=== PATIENT | female | born 1960 | race Caucasian/White ===

== ENCOUNTER 2016-11-21 07:57 | Inpatient (IN) | payer BC ==
[2016-11-21] MEDS ORDERED: KETOROLAC TROMETHAMINE 30 MG/ML VIAL IV ONE (08:13)
[2016-11-21] MEDS ORDERED: ONDANSETRON HCL/PF 2 MG/ML VIAL IV ONE (08:13)
[2016-11-21] MEDS ORDERED: DIATRIZOATE MEGLU/DIATRIZO SOD 30 ML BTL PO ONE (08:13)
[2016-11-21] MEDS ORDERED: ONDANSETRON HCL/PF 2 MG/ML VIAL ONE (08:14)
[2016-11-21] MEDS ORDERED: DIATRIZOATE MEGLU/DIATRIZO SOD 30 ML BTL ONE (08:14)
[2016-11-21] MEDS ORDERED: KETOROLAC TROMETHAMINE 30 MG/ML VIAL ONE (08:14)
--- NOTE | 2016-11-21 08:19 | ERNOTE ---
Abdominal HPI - General Time Seen by Provider: 11/21/16 08:01 Source: patient Exam Limitations: no limitations - Immun/Allergies/Home Medications Allergies/Adverse Reactions: Allergies intex Allergy (Uncoded 11/21/16 10:48) Home Medications: HOME MEDICATIONS Atorvastatin Calcium 11/21/16 [Last Taken Unknown] Fluticasone/Salmeterol [Advair 100-50 Diskus] 1 puff IH BID 11/21/16 [Last Taken Unknown] Ipratropium [place] [Atrovent Hfa] 2 puff IH QID 11/21/16 [Last Taken Unknown] Lisinopril 11/21/16 [Last Taken Unknown] Singulair 11/21/16 [Last Taken Unknown] - History of Present Illness Narrative: Patient started to have abdominal pain yesterday afternoon. The pain has been waxing and waning but has not resolved, she is nauseated but has not vomited, had two episodes of diarrhea this morning, no blood, never had symptoms like this before Date (Duration): 11/20/16 Time (Timing): 15:45 Timing: constant Quality: severe, sharpness Activities at Onset: none Modifying Factors - (Worsens): Present: movement Prior Abdominal Problems: Present: none. Absent: similar symptoms Prior Treatment: Absent: recently seen, currently on antibiotics Review of Systems - Review of Systems Constitutional: Absent: recent illness, fever Respiratory: Absent: shortness of breath, other Gastrointestinal/Abdominal: Present: See HPI Genitourinary: Present: no symptoms reported Musculoskeletal: Absent: back pain - Patient's Past Medical History Patient History - Medical: Arthritis Patient History - Cardiac/Respiratory: Hypertension, Hyperlipidemia Patient History - Cancer: No Hx of Cancer Patient History - Surgical Procedures: Hysterectomy, Total Knee Replacement - Social History Smoking Status: Former smoker Physical Exam - Physical Exam General Appearance: Present: wd/wn, alert, moderate distress Ears, Nose, Throat: Present: normal pharynx Respiratory: Present: no respiratory distress, normal breath sounds, lungs clear Cardiovascular/Chest: Present: regular rate, rhythm, no murmur Gastrointestinal/Abdominal: Present: normal bowel sounds, nondistended, soft, tenderness, McBurney sign, Obturator sign, Psoas sign Back Exam: Present: no CVA tenderness Neurological Exam: Present: alert, oriented, normal mood/affect Skin Exam: Present: normal color, warm/dry ED Progress - Results and Orders Patient's Lab Results:: I have reviewed the patient's lab results. - Vital Signs Patient's Vital Signs:: I have reviewed the patient's vital signs. - CT/Ultrasound CT/Ultrasound Narrative: CT abdomen/pelvis: acute appendicitis - Progress/Reassessment Progress Note-Subjective: 11/21/16 08:43 minimal pain relieve from toradol 11/21/16 09:35 pain controlled after morphine, patient is tolerating contrast, having chills 11/21/16 10:37 discussed results with radiologist explained results to patient 11/21/16 10:[address] Quiros (surgery), start primaxin, he will call surgery for time Departure - Departure Clinical Impression: Appendicitis Qualifiers: Appendicitis type: acute appendicitis Acute appendicitis type: unspecified acute appendicitis type Qualified Code(s): K35.80 - Unspecified acute appendicitis Disposition: [facility] Condition: Good Referrals: Walter Glass MD [Primary Care Provider] -
[2016-11-21 08:36] LABS: Hematocrit 34.5 % (37.0-47.0); Hemoglobin 11.4 gm/dL (12.5-16.0); Mean Cell Volume 92.2 fl (78-100); Mean Corpuscular Hemoglobin 30.5 pg (27-31); Mean Platelet Volume 9.8 fl (6.0-9.5); Neutrophil # 15.5 K/mm3 (1.3-6.0); Neutrophil % 86.7 % (42-75.0); Platelet Count 270 K/mm3 (150-450); Red Blood Count 3.74 M/mm3 (4.2-5.4); Red Cell Distribution Width 13.1 % (11.5-14.0); White Blood Count 17.9 K/mm3 (4.0-10.5)
[2016-11-21] MEDS ORDERED: MORPHINE SULFATE 4 MG/ML SYRG IV ONE (08:42)
[2016-11-21] MEDS ORDERED: MORPHINE SULFATE 4 MG/ML SYRG ONE (08:43)
[2016-11-21 08:48] LABS: Albumin * 3.5 gm/dl (3.4-5.0); Anion Gap 15.5 mmol/L (6.8-13.8); Bilirubin, Total 1.2 mg/dL (0.0-1.1); Ca. Corrected For Albumin 9.2 mg/dL (8.4-10.2); Calcium * 9.1 mg/dL (7.9-10.9); Carbon Dioxide 25.3 mmol/L (24-32.6); Potassium 3.8 mmol/L (3.4-4.6); Total Protein 6.9 gm/dL (6.2-8.2)
--- OUTSIDE RECORDS SUMMARY | 2016-11-21 10:32 | XMS REPORT | Continuity of Care Document ---
:1960 Author Organization [facility] ([facility]) Address [address] [place] [address] Phone [phone] Care Team Providers Name Role Phone Provider, No-Primary Care Primary Care Provider Unavailable Source Comments This disclosure is being made pursuant to the Care Everywhere program, applicable federal and state laws, and may not contain all informaitonavailable regarding this patient.[facility] ([facility]) Active Allergies and Adverse Reactions Not on File Current Medications Not on file Active Problems Not on file Social History Tobacco Use Types Packs/Day Years Used Date Never Assessed Plan of Care Health Maintenance Due Date Last Done Comments HCV Screening 1960 Hepatitis B Vaccine (1 of 3 - Primary Series) 1960 Tdap Vaccine 11/04/1971 Lipid Disorder Screening 1978 MMR Vaccine 1978 Td Vaccine 1978 Cervical Cancer Screening 1990 Mammogram 2000 Colonoscopy 2010 Influenza Vaccine: Seasonal (#1) 04/02/2016 Results from Last 3 Months Not on file
--- OUTSIDE RECORDS SUMMARY | 2016-11-21 11:07 | XMS REPORT | Continuity of Care Document ---
:1960 Author Organization [facility] ([facility]) Address [address] [place] [address] Phone [phone] Care Team Providers Name Role Phone Provider, No-Primary Care Primary Care Provider Unavailable Source Comments This disclosure is being made pursuant to the Care Everywhere program, applicable federal and state laws, and may not contain all informaitonavailable regarding this patient.[facility] ([facility]) Active Allergies and Adverse Reactions Not on [...]
[2016-11-21] MEDS: CIPROFLOXACIN LACTATE/D5W 400 MG/200 ML BAG IV SCH ×2 (11:14→23:11)
[2016-11-21] MEDS ORDERED: NORMAL SALINE 1,000 ML IV ONE (11:32)
--- NOTE | 2016-11-21 12:27 | HP ---
Chief Complaint - Chief Complaint Date of Service: 11/21/16 Time of Service: 12:21 Chief Complaint: Acute appendicitis. Seen in ER History of Present Illness: Onset of RLQ abdominal pain since yesterday afternoon. Presented to ER with WBC ~17K and CT of abdomen c/w non-perforated acute appendicitis. - Patient's Past Medical History Patient History - Medical: Arthritis Patient History - Cardiac/Respiratory: Hypertension, Hyperlipidemia Patient History - Cancer: No Hx of Cancer Patient History - Surgical Procedures: Hysterectomy, Total Knee Replacement Patient History - Other: None LMP (females 10-50): Menopausal - Family History Family History:: no untoward family reactions to anesthesia - Social History Living Situations: home Abuse History: No History of abuse Psych History: No pertinent hx Smoking Status: Former smoker Alcohol Use: occasionally Drug Use: none - Immunizations Immunizations Up to Date: Yes Hx Pneumococcal Vaccination: Yes History of Influenza Vaccine: Yes Review Of Systems (GEN) - Review of Systems Misc: All systems neg except as marked Immunizations: IMMUNIZATION HX Immunizations Up to Date Yes History of Influenza Vaccine Yes Hx Pneumococcal Vaccination Yes Allergies/Adverse Reactions: Allergies Allergy/AdvReac Type Severity Reaction Status Date / Time intex Allergy Uncoded 11/21/16 10:48 Home Medications: HOME MEDICATIONS Atorvastatin Calcium 11/21/16 [Last Taken Unknown] Fluticasone/Salmeterol [Advair 100-50 Diskus] 1 puff IH BID 11/21/16 [Last Taken Unknown] Ipratropium [place] [Atrovent Hfa] 2 puff IH QID 11/21/16 [Last Taken Unknown] Lisinopril 11/21/16 [Last Taken Unknown] Singulair 11/21/16 [Last Taken Unknown] Exam - Exam Vital Signs: Vital Signs - Last Taken Temp 37.6 C H 11/21/16 12:14 Pulse 92 11/21/16 12:14 Resp 18 11/21/16 12:14 BP 103/46 11/21/16 12:14 Pulse Ox 96 11/21/16 12:14 Constitutional: Present: Alert, Oriented x3, No distress ENT Exam: Present: normal ENT inspection Neck: Present: normal inspection Respiratory: Present: normal breath sounds, no respiratory distress Cardiovascular/Chest: Present: regular rate, rhythm, no murmur Abdomen: Present: hypoactive Skin Exam: Present: warm/dry Neurologic: Present: no motor/sensory deficits Eye contact: Present: belligerent Diagnostic Studies: Abnormal Lab Results 11/21/16 11/21/16 Range/Units 08:25 08:25 WBC 17.9 H (4.0-10.5) K/mm3 RBC 3.74 L (4.2-5.4) M/mm3 Hgb 11.4 L (12.5-16.0) gm/dL Hct 34.5 L (37.0-47.0) % MPV 9.8 H (6.0-9.5) fl Immature Gran % (Auto) 0.80 H (0.001-0.429) % Immature Gran # (Auto) 0.15 H (0.000-0.0310) K/mm3 Neutrophils % 86.7 H (42-75.0) % Lymphocytes % 5.4 L (20-51) % Neutrophils # 15.5 H (1.3-6.0) K/mm3 Lymphocytes # 1.0 L (1.5-3.5) k/mm3 Monocytes # 1.2 H (0.0-1.0) k/mm3 Anion Gap 15.5 H (6.8-13.8) mmol/L Random Glucose 138 H (70-110) mg/dL Total Bilirubin 1.2 H (0.0-1.1) mg/dL Lipase 63 L (73-393) U/L Laboratory Results WBC 17.9 K/mm3 (4.0-10.5) H 11/21/16 08:25 RBC 3.74 M/mm3 (4.2-5.4) L 11/21/16 08:25 Hgb 11.4 gm/dL (12.5-16.0) L 11/21/16 08:25 Hct 34.5 % (37.0-47.0) L 11/21/16 08:25 MCV 92.2 fl (78-100) 11/21/16 08:25 MCH 30.5 pg (27-31) 11/21/16 08:25 MCHC 33.0 g/dl (32-36) 11/21/16 08:25 RDW 13.1 % (11.5-14.0) 11/21/16 08:25 Plt Count 270 K/mm3 (150-450) 11/21/16 08:25 MPV 9.8 fl (6.0-9.5) H 11/21/16 08:25 Immature Gran % (Auto) 0.80 % (0.001-0.429) H 11/21/16 08:25 Immature Gran # (Auto) 0.15 K/mm3 (0.000-0.0310) H 11/21/16 08:25 Neutrophils % 86.7 % (42-75.0) H 11/21/16 08:25 Lymphocytes % 5.4 % (20-51) L 11/21/16 08:25 Monocytes % 6.7 % (0.0-9) 11/21/16 08:25 Eosinophils % 0.1 % (0.0-3.0) 11/21/16 08:25 Basophils % 0.3 % (0.0-1.0) 11/21/16 08:25 Nucleated RBC % 0.0 k/mm3 (0-1) 11/21/16 08:25 Neutrophils # 15.5 K/mm3 (1.3-6.0) H 11/21/16 08:25 Lymphocytes # 1.0 k/mm3 (1.5-3.5) L 11/21/16 08:25 Monocytes # 1.2 k/mm3 (0.0-1.0) H 11/21/16 08:25 Eosinophils # 0.0 k/mm3 (0.0-0.7) 11/21/16 08:25 Absolute Basophils 0.1 k/mm3 (0.0-0.1) 11/21/16 08:25 Sodium 139 mmol/L (132-142) 11/21/16 08:25 Plasma Sodium 140 mmol/L (130-142) 11/21/16 08:25 Potassium 3.8 mmol/L (3.4-4.6) 11/21/16 08:25 Chloride 102 mmol/L (97-106) 11/21/16 08:25 Carbon Dioxide 25.3 mmol/L (24-32.6) 11/21/16 08:25 Anion Gap 15.5 mmol/L (6.8-13.8) H 11/21/16 08:25 BUN 13 mg/dL (3-23) 11/21/16 08:25 Creatinine 1.00 mg/dL (0.4-1.4) 11/21/16 08:25 Est GFR (Non-Af Amer) 61 mL/min (60-130) 11/21/16 08:25 BUN/Creatinine Ratio 13.0 (9.0-21.6) 11/21/16 08:25 Random Glucose 138 mg/dL (70-110) H 11/21/16 08:25 Calcium 9.1 mg/dL (7.9-10.9) 11/21/16 08:25 Calcium Adj for Albumin 9.2 mg/dL (8.4-10.2) 11/21/16 08:25 Total Bilirubin 1.2 mg/dL (0.0-1.1) H 11/21/16 08:25 AST 17 U/L (0-48) 11/21/16 08:25 ALT 24 U/L (19-67) 11/21/16 08:25 Alkaline Phosphatase 61 U/L (50-170) 11/21/16 08:25 Total Protein 6.9 gm/dL (6.2-8.2) 11/21/16 08:25 Albumin 3.5 gm/dl (3.4-5.0) 11/21/16 08:25 Amylase 41 U/L (25-115) 11/21/16 08:25 Lipase 63 U/L (73-393) L 11/21/16 08:25 Assessment/Plan - Narrative Narrative: A: Acute appendicitis. Non-perforated P: Recommend laparoscopic appendectomy. The options, risks, and benefits were reviewed with the patient who seems to understand, asks appropriate questions and desires to proceed.
[2016-11-21] MEDS ORDERED: RINGERS SOLUTION,LACTATED 1,000 ML IV ONE ×2 (12:50→13:50)
[2016-11-21] MEDS ORDERED: BUPIVACAINE HCL/EPINEPHRINE 50 ML VIAL IJ ONE ×2 (13:15)
--- NOTE | 2016-11-21 14:55 | OR ---
Operative Report - Dictated Report Narrative: Date: 11/21/16 Pre: Appendicitis, non-perf Post: Appendicitis, perforated Procedure: Laparoscopic adhesiolysis Laparoscopic appendectomy Surgeon: Ishaan EBL: 30 cc Drains: none Comps: none apparent Procedure: Pt was placed in supine position and following the smooth induction of GETA a montejo catheter was inserted and SCD boots applied. All port sites anesthetized with marcaine prior to incision. Small 5 mm infraumbilical incision carried out and blunt dissection carried to abdominal wall. Perforating towel clip placed through umbilical raphe for counter traction. Abdomen entered under direction vision with a 5mm blunt port with scope within the lumen of the trocar. Abdomen insufflated to 15mmHg with CO2. Large amount of dense adhesions to abdominal wall in lower half of abdomen started at left mid-clavicular line extending over to the Right Ant. Sup. Iliac spine. A LLQ 5mm port was inserted under direct vision. 75% of this case was spent in taking down these adhesions which also involved the terminal ileum, ileal fold of Treves, appendix and cecum. Once cleared a 12 mm suprapubic port was inserted under direct vision. The appendix was from surrounding adhesions and was found to be necrotic at its base near the cecum and was perforated with a fecolith sticking out. The mesoappendix was taken down in continuity with an ultrasonic dissector. The appendix was transected flush with the cecum with an endo-STEFANY. The appendix was placed in an endo-catch bag and delivered trough the suprapubic port site. This port was returned. Inspection carried out. Hemostasis was adequate. Pelvis and right iliac fossa were irrigated and irrigant evacuated. Pneumoperitoneum evacuated. Incisions closed with subq 4-0 vicryl interrupteds and sealed with dermabond. Pt luc procedure well without apparent comps and dc'd to recovery in stable condition.
--- OUTSIDE RECORDS SUMMARY | 2016-11-21 15:04 | XMS REPORT | Continuity of Care Document ---
:1960 Author Organization [facility] ([facility]) Address [address] [place] [address] Phone [phone] Care Team Providers Name Role Phone Provider, No-Primary Care Primary Care Provider Unavailable Source Comments This disclosure is being made pursuant to the Care Everywhere program, applicable federal and state laws, and may not contain all informaitonavailable regarding this patient.[facility] ([facility]) Active Allergies and Adverse Reactions Not on [...]
[2016-11-21] MEDS ORDERED: RINGERS SOLUTION,LACTATED 1,000 ML IV PRN (16:11)
[2016-11-21] MEDS ORDERED: ONDANSETRON HCL/PF 2 MG/ML VIAL IV PRN (16:11)
--- NOTE | 2016-11-21 16:19 | DS ---
(1) Appendicitis Problem: Acute Qualifiers: Appendicitis type: acute appendicitis Acute appendicitis type: unspecified acute appendicitis type Qualified Code(s): K35.80 - Unspecified acute appendicitis Description of Stay: Pt presented with acute appendicitis and underwent a lap appy with lysis of adhesions. Tolerated procedure well without comps and DCd in improved condition. Appy was perfed so will continue cipro/flagyl for 7 days outpatient and have short interval follow-up. Procedures Performed: see notes below List Procedures: Laparoscopic adhesiolysis, appendectomy Discharge Disposition: Home self care Disposition: Home self-care Condition: Good Discharge Activity: Activity as tolerated Discharge Diet: General/regular food Referrals: Walter Glass MD [Primary Care Provider] - Complete Home Medications List: Complete Home Medication List: Atorvastatin Calcium 11/21/16 Fluticasone/Salmeterol [Advair 100-50 Diskus] 1 puff IH BID 11/21/16 Ipratropium [place] [Atrovent Hfa] 2 puff IH QID 11/21/16 Lisinopril 11/21/16 Singulair 11/21/16
[2016-11-21] MEDS ORDERED: oxyCODONE HCL/ACETAMINOPHEN 1 TAB TABLET PO ONE (17:00)
[2016-11-21] MEDS: IPRATROPIUM BROMIDE 0.5 MG/2.5 ML VIAL.NEB IH SCH (18:14)
[2016-11-21] MEDS: ALBUTEROL SULFATE 2.5 MG/3 ML VIAL.NEB IH SCH (18:18)
[2016-11-21] MEDS: BUDESONIDE 0.25 MG/2 ML VIAL.NEB IH SCH (18:19)
[2016-11-21] MEDS ORDERED: NON-FORMULARY 1 DOSE DOSE (Fluticasone/Salmeterol [Advair 100-50 Diskus] 1 PUFF) IH SCH (21:00)
[2016-11-21] MEDS: MORPHINE SULFATE 2 MG/ML DISP.SYRIN IV PRN (23:17)
[2016-11-22] MEDS: MORPHINE SULFATE 2 MG/ML DISP.SYRIN IV PRN ×2 (03:36→04:53)
[2016-11-22] MEDS: IPRATROPIUM BROMIDE 0.5 MG/2.5 ML VIAL.NEB IH SCH ×2 (06:08→10:18)
[2016-11-22] MEDS: BUDESONIDE 0.25 MG/2 ML VIAL.NEB IH SCH (06:10)
[2016-11-22] MEDS: ALBUTEROL SULFATE 2.5 MG/3 ML VIAL.NEB IH SCH (06:10)
[2016-11-22] MEDS ORDERED: HYDROcodone/ACETAMINOPHEN 1 EACH TABLET PO PRN ×2 (06:38→06:40)
--- NOTE | 2016-11-22 10:10 | PN ---
Subjective - Date and Time Seen Date: 11/22/16 Time: 10:05 Subjective Narrative: POD1 Lap lysis adhesions and appendectomy Ambulating OK. Tolerating PO Minimal pain. Objective - Review of Systems Misc: All systems neg except as marked - Vitals Vitals: Last Vital Signs Temp 37.2 C 11/22/16 05:30 Pulse 101 H 11/22/16 06:20 Resp 22 H 11/22/16 06:20 BP 117/63 11/22/16 05:30 Pulse Ox 93 11/22/16 06:08 - Exam Exam Narrative: Abd: Wounds intact without drainage, s/s infection. Constitutional: Present: Alert, Oriented x3, Cooperative Assessment/Plan Plan Narrative: A: POD1 Lap appy, doing well P: Discharge to home May shower. Reg diet. Avoid heavy lifting for 2 weeks. FMLA-off work 2 weeks (works at [employer]). FU 1 week Needs 1 wk po abx due to perf. Home with [place]. - Problems/Diagnosis (1) Appendicitis Problem: Acute Qualifiers: Appendicitis type: acute appendicitis Acute appendicitis type: unspecified acute appendicitis type Qualified Code(s): K35.80 - Unspecified acute appendicitis
[2016-11-22 11:09] VITALS: BP 127/60
[2016-11-22] MEDS: CIPROFLOXACIN LACTATE/D5W 400 MG/200 ML BAG IV SCH (11:35)
== END 2016-11-22 14:00 | disposition home or self-care (01) | DRG 337 ==
LOC: ER 07:57 → AMB 11:03 → MS 14:59 → OBSVTOIN 17:04
PROVIDERS: ADMIT Specialist; ATTEND Specialist
PROC: 0DNB4ZZ Release Ileum, Percutaneous Endoscopic Approach (ICD-10-PCS; 2016-11-21)
PROC: 0DTJ4ZZ Resection of Appendix, Percutaneous Endoscopic Approach (ICD-10-PCS; principal; 2016-11-21 12:30)
DX: K35.2 Acute appendicitis with generalized peritonitis (principal); K66.0 Peritoneal adhesions (postprocedural) (postinfection); I10 Essential (primary) hypertension; E78.5 Hyperlipidemia, unspecified; Z87.891 Personal history of nicotine dependence

== ENCOUNTER 2017-03-10 22:09 | Inpatient (IN) | payer BC ==
--- NOTE | 2017-03-10 22:29 | ERNOTE ---
Abdominal HPI - General Chief Complaint: Abdominal Pain Time Seen by Provider: 03/10/17 22:13 Source: patient Exam Limitations: no limitations - Immun/Allergies/Home Medications Immunizatons: IMMUNIZATION HX Immunizations Up to Date Yes History of Influenza Vaccine Yes Hx Pneumococcal Vaccination Yes Allergies/Adverse Reactions: Allergies intex Allergy (Uncoded 03/10/17 22:19) Home Medications: HOME MEDICATIONS Atorvastatin Calcium 40 mg PO DAILY 11/21/16 [Last Taken Unknown] Baclofen 2.5 mg PO TID 11/21/16 [Last Taken Unknown] Calcium Carbonate/Vitamin D3 [Calcium 600 + D3 Softgel] 1 each PO BID 11/21/16 [ Last Taken Unknown] Diltiazem HCl [Diltiazem ER] 360 mg PO DAILY 11/21/16 [Last Taken Unknown] Fluticasone/Salmeterol [Advair 100-50 Diskus] 1 puff IH BID 11/21/16 [Last Taken Unknown] Gemfibrozil [Lopid] 600 mg PO DAILY 11/21/16 [Last Taken Unknown] Ipratropium [place] [Atrovent Hfa] 2 puff IH QID 11/21/16 [Last Taken Unknown] Lisinopril [Zestril] 10 mg PO BID 11/21/16 [Last Taken Unknown] Montelukast Sodium [Singulair] 10 mg PO DAILY 11/21/16 [Last Taken Unknown] Multivitamin [One Daily Essential] 1 each PO DAILY 11/21/16 [Last Taken Unknown] Nabumetone 750 mg PO TID 11/21/16 [Last Taken Unknown] [place] Oil/[place]-3 Fatty Acids [Fish Oil] 1,200 mg PO BID 11/21/16 [Last Taken Unknown] Turmeric Root Extract [Turmeric] 500 mg PO DAILY 03/10/17 [Last Taken Unknown] - History of Present Illness Narrative: pt here for abd pain for two weeks however pt states she has had this abd pain off and on "since I had my appendicitis" Review of Systems - Review of Systems Constitutional: Present: no symptoms reported EYE: Present: no symptoms reported ENT: Present: no symptoms reported Respiratory: Present: no symptoms reported Cardiology: Present: no symptoms reported Gastrointestinal/Abdominal: Present: See HPI Genitourinary: Present: no symptoms reported - Patient's Past Medical History Patient History - Medical: Arthritis Patient History - Cardiac/Respiratory: COPD, Hypertension, Hyperlipidemia Patient History - Cancer: No Hx of Cancer Patient History - Surgical Procedures: Appendectomy, Hysterectomy, Total Knee Replacement, Hernia Repair Patient History - Other: None - Social History Living Situations: home Abuse History: No History of abuse Psych History: No pertinent hx Smoking Status: Never smoker Have you smoked in the past 12 months: No Alcohol Use: occasionally Drug Use: none - Immunizations Immunizations Up to Date: Yes Hx Pneumococcal Vaccination: Yes History of Influenza Vaccine: Yes Physical Exam - Physical Exam General Appearance: Present: wd/wn, alert, no apparent distress Neck: Present: normal inspection, nontender Respiratory: Present: no respiratory distress, normal breath sounds, no accessory muscle use, chest nontender, lungs clear Cardiovascular/Chest: Present: regular rate, rhythm, no murmur, normal peripheral pulses Gastrointestinal/Abdominal: Present: other - increased bowel sounds with rushes , also pt is very tender in mid epigastrium region. It feels full ED Progress - Results and Orders Patient's Lab Results:: I have reviewed the patient's lab results. - Vital Signs Patient's Vital Signs:: I have reviewed the patient's vital signs. Vital Signs: Vital Signs 03/10/17 22:15 Temperature 37.0 C Pulse Rate 90 Respiratory 16 Rate Blood Pressure 119/70 - Progress/Reassessment Chief Complaint: Abdominal Pain Plan - Plan Plan: pt has partial sbo and will be admitted, Dr. Quiros was consulted and pt to be admitted to [facility] Departure - Departure Clinical Impression: Small bowel obstruction Disposition: [facility] Condition: Fair
[2017-03-10] MEDS ORDERED: DIATRIZOATE MEGLU/DIATRIZO SOD 30 ML BTL ONE (22:51)
[2017-03-10] MEDS ORDERED: DIATRIZOATE MEGLU/DIATRIZO SOD 30 ML BTL PO ONE (23:03)
[2017-03-10 23:04] LABS: Hematocrit 34.3 % (37.0-47.0); Hemoglobin 11.4 gm/dL (12.5-16.0); Mean Cell Volume 88.9 fl (78-100); Mean Corpuscular Hemoglobin 29.5 pg (27-31); Mean Corpuscular Hgb Conc 33.2 g/dl (32-36); Mean Platelet Volume 9.2 fl (6.0-9.5); Neutrophil # 8.4 K/mm3 (1.3-6.0); Neutrophil % 64.5 % (42-75.0); Platelet Count 432 K/mm3 (150-450); Red Blood Count 3.86 M/mm3 (4.2-5.4); Red Cell Distribution Width 13.1 % (11.5-14.0)
[2017-03-10 23:17] LABS: Albumin * 3.8 gm/dl (3.4-5.0); Anion Gap 13.1 mmol/L (6.8-13.8); Bilirubin, Total 0.8 mg/dL (0.0-1.1); Ca. Corrected For Albumin 9.4 mg/dL (8.4-10.2); Calcium * 9.6 mg/dL (7.9-10.9); Carbon Dioxide 30.6 mmol/L (24-32.6); Potassium 4.7 mmol/L (3.4-4.6); Total Protein 7.8 gm/dL (6.2-8.2)
[2017-03-11] MEDS ORDERED: ONDANSETRON HCL/PF 2 MG/ML VIAL IV ONE ×2 (00:41→00:44)
[2017-03-11] MEDS ORDERED: HYDROmorphone HCL 1 MG/ML DISP.SYRIN IV ONE (00:42)
[2017-03-11] MEDS ORDERED: HYDROmorphone HCL 1 MG/ML DISP.SYRIN ONE (00:43)
[2017-03-11] MEDS ORDERED: ONDANSETRON HCL/PF 2 MG/ML VIAL ONE (00:43)
[2017-03-11] MEDS ORDERED: KETOROLAC TROMETHAMINE 30 MG/ML VIAL IV ONE (00:45)
--- NOTE | 2017-03-11 03:42 | HP ---
Chief Complaint - Chief Complaint Date of Service: 03/11/17 Time of Service: 03:41 Chief Complaint: partial small bowel obstruction History of Present Illness: Tiera is a 56 year old female with a PMH of COPD, HTN and HLD who had an appendectomy 10/2016 who presented to the ER tonight with c/o abdominal pain for 1 week. ER eval revealed wbc 13.0 with normal neutrophils, creatinine 1.24. CT abdomen/pelvis showed large hiatal hernia and dilated loops of small bowel throughout the abdomen c/w partial SBO vs ileus, no focal transition point seen. Dr. Brown was consulted by the ER. NG tube placed prior to admission. Patient to be admitted for partial SBO. - Patient's Past Medical History Patient History - Medical: Arthritis Patient History - Cardiac/Respiratory: COPD, Hypertension, Hyperlipidemia Patient History - Cancer: No Hx of Cancer Patient History - Surgical Procedures: Appendectomy, Hysterectomy, Total Knee Replacement, Hernia Repair Patient History - Other: None - Social History Living Situations: home Abuse History: No History of abuse Psych History: No pertinent hx Smoking Status: Never smoker Have you smoked in the past 12 months: No Alcohol Use: occasionally Drug Use: none - Immunizations Immunizations Up to Date: Yes Hx Pneumococcal Vaccination: Yes History of Influenza Vaccine: Yes Review Of Systems (GEN) - Review of Systems Generalized/Overall Review: Present: No Symptoms Reported EENTM: Present: No Symptoms Reported, Throat Swelling Cardiac: Present: No Symptoms Reported Abdominal: Present: Nausea, Abdominal Pain Genitourinary: Present: No Symptoms Reported Musculoskeletal: Present: No Symptoms Reported Neurological: Present: No Symptoms Reported Skin: Present: No Symptoms Reported Endocrine: Present: No Symptoms Reported Misc: All systems neg except as marked Immunizations: IMMUNIZATION HX Immunizations Up to Date Yes History of Influenza Vaccine Yes Hx Pneumococcal Vaccination Yes Allergies/Adverse Reactions: Allergies Allergy/AdvReac Type Severity Reaction Status Date / Time intex Allergy Uncoded 03/10/17 22:19 Home Medications: HOME MEDICATIONS Atorvastatin Calcium 40 mg PO DAILY 11/21/16 [Last Taken Unknown] Baclofen 2.5 mg PO TID 11/21/16 [Last Taken Unknown] Calcium Carbonate/Vitamin D3 [Calcium 600 + D3 Softgel] 1 each PO BID 11/21/16 [ Last Taken Unknown] Diltiazem HCl [Diltiazem ER] 360 mg PO DAILY 11/21/16 [Last Taken Unknown] Fluticasone/Salmeterol [Advair 100-50 Diskus] 1 puff IH BID 11/21/16 [Last Taken Unknown] Gemfibrozil [Lopid] 600 mg PO DAILY 11/21/16 [Last Taken Unknown] Ipratropium [place] [Atrovent Hfa] 2 puff IH QID 11/21/16 [Last Taken Unknown] Lisinopril [Zestril] 10 mg PO BID 11/21/16 [Last Taken Unknown] Montelukast Sodium [Singulair] 10 mg PO DAILY 11/21/16 [Last Taken Unknown] Multivitamin [One Daily Essential] 1 each PO DAILY 11/21/16 [Last Taken Unknown] Nabumetone 750 mg PO TID 11/21/16 [Last Taken Unknown] [place] Oil/[place]-3 Fatty Acids [Fish Oil] 1,200 mg PO BID 11/21/16 [Last Taken Unknown] Turmeric Root Extract [Turmeric] 500 mg PO DAILY 03/10/17 [Last Taken Unknown] Exam - Exam Vital Signs: Vital Signs - Last Taken Temp 37.0 C 03/11/17 01:55 Pulse 70 03/11/17 02:39 Resp 16 03/11/17 02:39 BP 130/77 03/11/17 02:39 Pulse Ox 95 03/11/17 02:39 Constitutional: Present: Alert, No distress, Other - minimally cooperative with questions asked ENT Exam: Present: hearing grossly normal Eye Exam: bilateral eye: normal inspection Neck: Present: full range of motion, supple Breasts: Present: Exam deferred Respiratory: Present: lungs clear, normal breath sounds, no respiratory distress , no accessory muscle use Cardiovascular/Chest: Present: regular rate, rhythm, no chest tenderness, no JVD , no murmur Peripheral Pulses: dorsalis-pedis (R): 2+, dorsalis-pedis (L): 2+, radial (R): 2 +, radial (L): 2+ Abdomen: Present: soft, tender, high pitched bowel sounds /Rectal: Present: Exam deferred Extremity: Present: non-tender, normal inspection, no calf tenderness Skin Exam: Present: normal color, warm/dry, no cyanosis Diagnostic Studies: Laboratory Results WBC 13.0 K/mm3 (4.0-10.5) H 03/10/17 23:00 RBC 3.86 M/mm3 (4.2-5.4) L 03/10/17 23:00 Hgb 11.4 gm/dL (12.5-16.0) L 03/10/17 23:00 Hct 34.3 % (37.0-47.0) L 03/10/17 23:00 MCV 88.9 fl (78-100) 03/10/17 23:00 MCH 29.5 pg (27-31) 03/10/17 23:00 MCHC 33.2 g/dl (32-36) 03/10/17 23:00 RDW 13.1 % (11.5-14.0) 03/10/17 23:00 Plt Count 432 K/mm3 (150-450) 03/10/17 23:00 MPV 9.2 fl (6.0-9.5) 03/10/17 23:00 Immature Gran % (Auto) 0.40 % (0.001-0.429) 03/10/17 23:00 Immature Gran # (Auto) 0.05 K/mm3 (0.000-0.0310) H 03/10/17 23:00 Neutrophils % 64.5 % (42-75.0) 03/10/17 23:00 Lymphocytes % 23.2 % (20-51) 03/10/17 23:00 Monocytes % 7.6 % (0.0-9) 03/10/17 23:00 Eosinophils % 3.2 % (0.0-3.0) H 03/10/17 23:00 Basophils % 1.1 % (0.0-1.0) H 03/10/17 23:00 Nucleated RBC % 0.0 k/mm3 (0-1) 03/10/17 23:00 Neutrophils # 8.4 K/mm3 (1.3-6.0) H 03/10/17 23:00 Lymphocytes # 3.0 k/mm3 (1.5-3.5) 03/10/17 23:00 Monocytes # 1.0 k/mm3 (0.0-1.0) 03/10/17 23:00 Eosinophils # 0.4 k/mm3 (0.0-0.7) 03/10/17 23:00 Absolute Basophils 0.1 k/mm3 (0.0-0.1) 03/10/17 23:00 Sodium 136 mmol/L (132-142) 03/10/17 23:00 Plasma Sodium 136 mmol/L (130-142) 03/10/17 23:00 Potassium 4.7 mmol/L (3.4-4.6) H D 03/10/17 23:00 Chloride 97 mmol/L (97-106) 03/10/17 23:00 Carbon Dioxide 30.6 mmol/L (24-32.6) 03/10/17 23:00 Anion Gap 13.1 mmol/L (6.8-13.8) 03/10/17 23:00 BUN 26 mg/dL (3-23) H D 03/10/17 23:00 Creatinine 1.24 mg/dL (0.4-1.4) 03/10/17 23:00 Est GFR (Non-Af Amer) 48 mL/min (60-130) L D 03/10/17 23:00 BUN/Creatinine Ratio 21.0 (9.0-21.6) 03/10/17 23:00 Random Glucose 127 mg/dL (70-110) H 03/10/17 23:00 Calcium 9.6 mg/dL (7.9-10.9) 03/10/17 23:00 Calcium Adj for Albumin 9.4 mg/dL (8.4-10.2) 03/10/17 23:00 Total Bilirubin 0.8 mg/dL (0.0-1.1) 03/10/17 23:00 AST 19 U/L (0-48) 03/10/17 23:00 ALT 22 U/L (19-67) 03/10/17 23:00 Alkaline Phosphatase 100 U/L (50-170) 03/10/17 23:00 Total Protein 7.8 gm/dL (6.2-8.2) 03/10/17 23:00 Albumin 3.8 gm/dl (3.4-5.0) 03/10/17 23:00 Assessment/Plan - Narrative Narrative: small bowel obstruction, partial - ng tube to suction - strict I&Os - watch output closely - NPO - IVF: D5NS at 125 ml/hr - Dr. Joel has been consulted by the ERP - iv anti-enemic and iv pain medications have been ordered. HTN - vital signs q 4 hours Stable medical conditions -COPD, HLD Code status: full Code VTE: Lovenox GI proph: IV protonix. - Assessment/Plan (1) Small bowel obstruction Problem: Acute (2) COPD (chronic obstructive pulmonary disease) Problem: Chronic Qualifiers: COPD type: unspecified COPD Qualified Code(s): J44.9 - Chronic obstructive pulmonary disease, unspecified (3) HTN (hypertension) Problem: Chronic Qualifiers: Hypertension type: essential hypertension Qualified Code(s): I10 - Essential (primary) hypertension (4) HLD (hyperlipidemia) Problem: Chronic Qualifiers: Hyperlipidemia type: unspecified Qualified Code(s): E78.5 - Hyperlipidemia , unspecified
[2017-03-11] MEDS: PANTOPRAZOLE SODIUM 40 MG in NORMAL SALINE 100 ML IV SCH (04:13)
[2017-03-11] MEDS: DEXTROSE 5%-NORMAL SALINE 1,000 ML IV PRN ×3 (04:13→20:38)
[2017-03-11] MEDS ORDERED: ENOXAPARIN SODIUM 40 MG/0.4 ML SYRG SC ONE (04:54)
[2017-03-11] MEDS: BUDESONIDE 0.25 MG/2 ML VIAL.NEB IH SCH ×2 (06:31→18:18)
[2017-03-11] MEDS: ALBUTEROL SULFATE 2.5 MG/3 ML VIAL.NEB IH SCH ×2 (06:31→18:16)
[2017-03-11] MEDS: IPRATROPIUM BROMIDE 0.5 MG/2.5 ML VIAL.NEB IH SCH ×4 (06:31→18:14)
[2017-03-11] MEDS: HYDROmorphone HCL 1 MG/ML DISP.SYRIN IV PRN ×4 (06:59→21:50)
[2017-03-11] MEDS: ONDANSETRON HCL/PF 2 MG/ML VIAL IV PRN ×2 (07:04→21:48)
[2017-03-11] MEDS: LISINOPRIL 10 MG TABLET PO SCH ×2 (08:49→20:42)
[2017-03-11] MEDS: BENZOCAINE/MENTHOL 16 EACH BOX MM PRN ×2 (08:52→14:07)
[2017-03-11] MEDS: DILTIAZEM HCL 180 MG CAP.SR.24H PO SCH (08:55)
[2017-03-11] MEDS: ENOXAPARIN SODIUM 40 MG/0.4 ML SYRG SC SCH (08:55)
[2017-03-11] MEDS ORDERED: PHENOL 180 SPRAY BTL MM PRN (10:37)
--- NOTE | 2017-03-11 10:48 | CONS ---
HPI - General Date of Service: 03/11/17 Narrative: Asked to see for a PSBO. Pt presented to ER with 1 week hx of abdominal pain and was found to have either an ileus or SBO on CT of the abdomen. No clear transition point was seen. Pt is well known to me. I did a laparoscopic appendectomy for perforated appendicitis back in October of this year. At that procedure she was noted to have extensive lower abdominal adhesions to the anterior abdominal wall. 75% of the time spent during that laparoscopy was to clear off adhesions so I could put in an additional port in the suprapubic region. She had contacted my office last week to see if we did cindi fundoplications due to her previously known hiatal hernia. She will need to have that repaired in [place]. Today she is feeling better but the NG is causing her an extreme sore throat and she is unable to talk and communicates by writing. Source: patient, RN/MD, old records Exam Limitations: no limitations - History of Present Illness Allergies/Adverse Reactions: Allergies intex Allergy (Uncoded 03/10/17 22:19) Home Medications: Home Medications Medication Instructions Recorded Last Taken Atorvastatin Calcium 40 mg PO DAILY 11/21/16 Unknown Baclofen 2.5 mg PO TID 11/21/16 Unknown Calcium Carbonate/Vitamin D3 2 each PO DAILY 11/21/16 Unknown [Calcium 600 + D3 Softgel] Diltiazem HCl [Diltiazem ER] 360 mg PO DAILY 11/21/16 Unknown Gemfibrozil [Lopid] 600 mg PO DAILY 11/21/16 Unknown Ipratropium [place] [Atrovent Hfa] 2 puff IH QID 11/21/16 Unknown Lisinopril [Zestril] 10 mg PO BID 11/21/16 Unknown Montelukast Sodium [Singulair] 10 mg PO DAILY 11/21/16 Unknown Multivitamin [One Daily Essential] 1 each PO DAILY 11/21/16 Unknown Nabumetone 750 mg PO TID 11/21/16 Unknown [place] Oil/[place]-3 Fatty Acids 1,200 mg PO BID 11/21/16 Unknown [Fish Oil] Turmeric Root Extract [Turmeric] 500 mg PO DAILY 03/10/17 Unknown Fluticasone/Salmeterol [Advair 1 puff IH BID 03/11/17 Unknown 250-50 Diskus] - Patient's Past Medical History Patient History - Medical: Arthritis Patient History - Cardiac/Respiratory: COPD, Hypertension, Hyperlipidemia Patient History - Cancer: No Hx of Cancer Patient History - Surgical Procedures: Appendectomy, Hysterectomy, Total Knee Replacement, Hernia Repair Patient History - Other: None - Family History Mother Family History - Medical: Father Family History - Medical: - Social History Living Situations: home Abuse History: No History of abuse Psych History: No pertinent hx Smoking Status: Never smoker Have you smoked in the past 12 months: No Do you dip or chew tobacco: No Patient requests Smoking Cessation Consult: No Initiate information on Smoking Cessation: No Alcohol Use: occasionally Drug Use: none - Immunizations Immunizations Up to Date: Yes Hx Pneumococcal Vaccination: Yes History of Influenza Vaccine: Yes Procedures BUNIONECT/SFT/OSTEOTOMY (11/29/99) RELEASE ILEUM, PERCUTANEOUS ENDOSCOPIC APPROACH (11/21/16) REPAIR OF HAMMER TOE (11/29/99) RESECTION OF APPENDIX, PERCUTANEOUS ENDOSCOPIC APPROACH (11/21/16) Medications - Medications Current Medications: Current Medications Albuterol Sulfate (Albuterol Sulfate 2.5 Mg/3 Ml) 2.5 mg IH BIDRT [facility] Stop: 04/10/17 07:01 Last Admin: 03/11/17 06:31 Dose: 2.5 mg Benzocaine/Menthol (Cepacol Sore Throat) 1 each MM Q1H PRN PRN Reason: Sore Throat Stop: 04/10/17 06:44 Last Admin: 03/11/17 08:52 Dose: 1 each Budesonide (Pulmicort Respules) 0.25 mg IH BIDRT [facility] Stop: 04/10/17 07:01 Last Admin: 03/11/17 06:31 Dose: 0.25 mg Diltiazem HCl (Cardizem Cd) 360 mg PO DAILY [facility] Stop: 04/10/17 09:01 Last Admin: 03/11/17 08:55 Dose: Not Given Enoxaparin Sodium (Lovenox) 40 mg SC DAILY [facility] Stop: 04/10/17 09:01 Last Admin: 03/11/17 08:55 Dose: Not Given Hydromorphone HCl (Dilaudid) 0.5 mg IV Q1H PRN PRN Reason: Moderate Pain Stop: 04/10/17 03:40 Last Admin: 03/11/17 06:59 Dose: 0.5 mg Dextrose/Sodium Chloride (Dextrose 5%-0.9% Ns) 1,000 mls @ 125 mls/hr IV .Q8H PRN PRN Reason: HYDRATION Stop: 04/10/17 03:40 Last Admin: 03/11/17 04:13 Dose: 125 mls/hr Pantoprazole Sodium 40 mg/ (Sodium Chloride) 100 mls @ 400 mls/hr IV DAILY [facility] Stop: 04/10/17 04:01 Last Infusion: 03/11/17 04:28 Dose: Infused Ipratropium [place] (Atrovent) 0.5 mg IH QIDRT [facility] Stop: 04/10/17 07:01 Last Admin: 03/11/17 10:07 Dose: 0.5 mg Lisinopril (Zestril) 10 mg PO BID [facility] Stop: 04/10/17 09:01 Last Admin: 03/11/17 08:49 Dose: 10 mg Ondansetron HCl (Zofran) 4 mg IV Q4H PRN PRN Reason: Nausea Stop: 04/10/17 03:40 Last Admin: 03/11/17 07:04 Dose: 4 mg Review of Systems - Review of Systems Abdominal: Present: Abdominal Pain Misc: All systems neg except as marked Physical Examination - Exam Vital Signs: Vital Signs - Last Taken Temp 36.9 C 03/11/17 06:58 Pulse 63 03/11/17 10:17 Resp 20 03/11/17 10:17 BP 110/86 03/11/17 08:49 Pulse Ox 95 03/11/17 10:07 O2 Oxygen Delivery Method Room Air Constitutional: Present: Alert, Oriented x3, Cooperative, Severe distress - Sore throat ENT Exam: Present: normal ENT inspection, other - NG draining bilious succus entericus Eye Exam: bilateral eye: normal inspection Neck: Present: normal inspection Respiratory: Present: no respiratory distress Abdomen: Present: soft, nontender, nondistended, no rebound tenderness, no hepatospenomegaly, no masses, obese. Absent: guarding, rigidity Skin Exam: Present: normal color, warm/dry Neurologic: Present: no motor/sensory deficits - Assessments/Findings (1) Small bowel obstruction Diagnosis(s): A: Partial Small Bowel Obstruction (PSBO) P: Agree with current management. Will follow with you. Undoubtedly adhesive in nature. Chloraseptic spray for throat. Problem: Acute
[2017-03-12] MEDS: DEXTROSE 5%-NORMAL SALINE 1,000 ML IV PRN (04:44)
[2017-03-12] MEDS: BENZOCAINE/MENTHOL 16 EACH BOX MM PRN (04:46)
[2017-03-12] MEDS: HYDROmorphone HCL 1 MG/ML DISP.SYRIN IV PRN ×2 (04:46→06:47)
--- NOTE | 2017-03-12 05:34 | PN ---
Subjective - Date and Time Seen Date: 03/12/17 Time: 05:32 Subjective Narrative: c/o sore throat. wants NG tube out. Objective - Review of Systems Generalized/Overall Review: Reports: No Symptoms Reported EENTM: Reports: Throat Pain Respiratory: Reports: No Symptoms Reported Cardiac: Reports: No Symptoms Reported Abdominal: Reports: No Symptoms Reported Genitourinary Symptoms: Reports: No Symptoms Reported Musculoskeletal Complaints: Reports: No Symptoms Reported Neurological: Reports: No Symptoms Reported Skin: Reports: No Symptoms Reported Endocrine: Reports: No Symptoms Reported Misc: All systems neg except as marked - Vitals Vitals: Last Vital Signs Temp 36.8 C 03/12/17 03:23 Pulse 75 03/12/17 03:23 Resp 18 03/12/17 03:23 BP 111/65 03/12/17 03:23 Pulse Ox 92 03/11/17 23:25 - Exam Constitutional: Present: Oriented x3, No distress ENT Exam: Present: hearing grossly normal Neck: Present: full range of motion, supple Breasts: Present: Exam deferred Respiratory: Present: normal breath sounds, no respiratory distress, no accessory muscle use Cardiovascular/Chest: Present: normal peripheral pulses, regular rate, rhythm Abdomen: Present: soft, nontender, nondistended /Rectal: Present: Exam deferred Extremity: Present: normal inspection, no calf tenderness Skin Exam: Present: normal color, warm/dry, no cyanosis Assessment/Plan Plan Narrative: small bowel obstruction, partial - ng tube to suction currently - strict I&Os - watch output closely - NPO - IVF: D5NS at 125 ml/hr - Dr. Brown following - recheck abdominal xray this am - ? removal of ng tube. - am labs pending. HTN - vital signs q 4 hours Stable medical conditions -COPD, HLD Code status: full Code VTE: Lovenox GI proph: IV protonix. - Problems/Diagnosis (1) Small bowel obstruction Problem: Acute (2) COPD (chronic obstructive pulmonary disease) Problem: Chronic Qualifiers: COPD type: unspecified COPD Qualified Code(s): J44.9 - Chronic obstructive pulmonary disease, unspecified (3) HTN (hypertension) Problem: Chronic Qualifiers: Hypertension type: essential hypertension Qualified Code(s): I10 - Essential (primary) hypertension (4) HLD (hyperlipidemia) Problem: Chronic Qualifiers: Hyperlipidemia type: unspecified Qualified Code(s): E78.5 - Hyperlipidemia , unspecified
[2017-03-12 06:02] LABS: Hematocrit 29.8 % (37.0-47.0); Hemoglobin 9.8 gm/dL (12.5-16.0); Mean Cell Volume 89.8 fl (78-100); Mean Corpuscular Hemoglobin 29.5 pg (27-31); Mean Corpuscular Hgb Conc 32.9 g/dl (32-36); Mean Platelet Volume 9.8 fl (6.0-9.5); Platelet Count 326 K/mm3 (150-450); Red Blood Count 3.32 M/mm3 (4.2-5.4); Red Cell Distribution Width 13.1 % (11.5-14.0); White Blood Count 9.3 K/mm3 (4.0-10.5)
[2017-03-12 06:39] LABS: BUN/Creatinine Ratio 14.6 (9.0-21.6); Calcium * 8.4 mg/dL (7.9-10.9); Estimated Creat Clear 74.5
[2017-03-12] MEDS: ONDANSETRON HCL/PF 2 MG/ML VIAL IV PRN (07:52)
[2017-03-12] MEDS: PANTOPRAZOLE SODIUM 40 MG in NORMAL SALINE 100 ML IV SCH (09:32)
[2017-03-12] MEDS: ENOXAPARIN SODIUM 40 MG/0.4 ML SYRG SC SCH (09:32)
[2017-03-12] MEDS: DILTIAZEM HCL 180 MG CAP.SR.24H PO SCH (09:32)
[2017-03-12] MEDS: LISINOPRIL 10 MG TABLET PO SCH ×2 (09:32→21:36)
[2017-03-12] MEDS ORDERED: ACETAMINOPHEN 325 MG TABLET PO PRN (10:02)
[2017-03-12] MEDS: IPRATROPIUM BROMIDE 0.5 MG/2.5 ML VIAL.NEB IH SCH ×2 (10:02→10:04)
[2017-03-12] MEDS: ALBUTEROL SULFATE 2.5 MG/3 ML VIAL.NEB IH SCH ×2 (10:04→18:27)
[2017-03-12] MEDS: BUDESONIDE 0.25 MG/2 ML VIAL.NEB IH SCH ×2 (10:04→18:28)
[2017-03-12] MEDS ORDERED: ONDANSETRON HCL 4 MG TABLET PO PRN (10:05)
--- NOTE | 2017-03-12 11:41 | PN ---
Subjective - Date and Time Seen Date: 03/12/17 Time: 11:38 Subjective Narrative: FU PSBO Pt is passing flatus and had a BM. AXR shows contrast going throughout colon. Objective Objective Narrative: Pt is improved. Is able to speak now that her NG is out and is back to her usual pleasant self. - Vitals Vitals: Last Vital Signs Temp 36.5 C 03/12/17 09:56 Pulse 97 03/12/17 10:02 Resp 20 03/12/17 10:02 BP 111/64 03/12/17 09:56 Pulse Ox 56 L 03/12/17 10:02 - Abnormal Lab Findings Abnormal Lab Findings: Abnormal Lab Results 03/12/17 03/12/17 Range/Units 05:35 05:35 RBC 3.32 L (4.2-5.4) M/mm3 Hgb 9.8 L (12.5-16.0) gm/dL Hct 29.8 L (37.0-47.0) % MPV 9.8 H (6.0-9.5) fl Random Glucose 124 H (70-110) mg/dL Assessment/Plan Plan Narrative: A: Resolving PSBO P: Start clear liquids. She would like to address her hiatal hernia. [facility]commended [facility] but she [facility]'t want to go there. Will check around. - Problems/Diagnosis (1) Small bowel obstruction Problem: Acute
[2017-03-12] MEDS: ATROVENT INHALER INH SCH ×2 (17:47→21:33)
[2017-03-12] MEDS ORDERED: MONTELUKAST SODIUM 10 MG TABLET PO SCH (18:00)
[2017-03-12] MEDS ORDERED: ROSUVASTATIN CALCIUM 20 MG TABLET PO SCH (21:00)
[2017-03-12] MEDS: FLUTICASONE/SALMETEROL 14 PUFF DISK.W.DEV IH SCH (21:33)
[2017-03-12] MEDS: GEMFIBROZIL 600 MG TABLET PO SCH (21:36)
[2017-03-12] MEDS: MONTELUKAST SODIUM 10 MG TABLET PO SCH (21:43)
[2017-03-13] MEDS ORDERED: PANTOPRAZOLE SODIUM 40 MG TABLET.EC PO SCH ×2 (04:00→07:00)
[2017-03-13] MEDS ORDERED: MULTIVITAMINS 1 CAP CAPSULE PO SCH ×2 (04:00→09:00)
[2017-03-13] MEDS ORDERED: DILTIAZEM HCL 180 MG CAP.SR.24H PO SCH (04:00)
[2017-03-13] MEDS: ATROVENT INHALER INH SCH ×3 (04:07→11:19)
[2017-03-13] MEDS: FLUTICASONE/SALMETEROL 14 PUFF DISK.W.DEV IH SCH ×2 (04:07→09:34)
[2017-03-13] MEDS: GEMFIBROZIL 600 MG TABLET PO SCH (04:07)
[2017-03-13] MEDS: MONTELUKAST SODIUM 10 MG TABLET PO SCH (04:08)
[2017-03-13] MEDS: LISINOPRIL 10 MG TABLET PO SCH (04:08)
[2017-03-13 05:17] LABS: Hematocrit 30.4 % (37.0-47.0); Hemoglobin 9.9 gm/dL (12.5-16.0); Mean Cell Volume 90.5 fl (78-100); Mean Corpuscular Hemoglobin 29.5 pg (27-31); Mean Corpuscular Hgb Conc 32.6 g/dl (32-36); Mean Platelet Volume 9.5 fl (6.0-9.5); Neutrophil # 3.9 K/mm3 (1.3-6.0); Neutrophil % 56.2 % (42-75.0); Platelet Count 295 K/mm3 (150-450); Red Blood Count 3.36 M/mm3 (4.2-5.4); Red Cell Distribution Width 12.7 % (11.5-14.0)
[2017-03-13 05:36] LABS: Anion Gap 10.6 mmol/L (6.8-13.8); BUN/Creatinine Ratio 9.5 (9.0-21.6); Calcium * 8.5 mg/dL (7.9-10.9); Carbon Dioxide 28.8 mmol/L (24-32.6); Estimated Creat Clear 64.3; Potassium 3.4 mmol/L (3.4-4.6)
[2017-03-13] MEDS: BUDESONIDE 0.25 MG/2 ML VIAL.NEB IH SCH (06:34)
[2017-03-13] MEDS: ALBUTEROL SULFATE 2.5 MG/3 ML VIAL.NEB IH SCH (06:34)
[2017-03-13] MEDS ORDERED: GEMFIBROZIL 600 MG TABLET PO SCH (09:00)
[2017-03-13] MEDS: ENOXAPARIN SODIUM 40 MG/0.4 ML SYRG SC SCH (09:34)
--- NOTE | 2017-03-13 10:12 | PN ---
Subjective - Date and Time Seen Date: 03/13/17 Time: 10:08 Subjective Narrative: FU PSBO Tolerating PO well. No new c/o. Objective - Review of Systems Misc: All systems neg except as marked - Vitals Vitals: Last Vital Signs Temp 37 C 03/13/17 06:59 Pulse 64 03/13/17 06:59 Resp 16 03/13/17 06:59 BP 107/62 03/13/17 06:59 Pulse Ox 98 03/13/17 06:59 - Abnormal Lab Findings Abnormal Lab Findings: Abnormal Lab Results 03/13/17 03/13/17 03/13/17 Range/Units 05:15 05:15 05:15 RBC 3.36 L (4.2-5.4) M/mm3 Hgb 9.9 L (12.5-16.0) gm/dL Hct 30.4 L (37.0-47.0) % Eosinophils % 7.6 H (0.0-3.0) % Random Glucose 175 H D (70-110) mg/dL Procalcitonin Less than 0.05 L (0.05-0.50) ng/mL - Exam Exam Narrative: CXR improved Constitutional: Present: Alert, Oriented x3, Cooperative, No distress Assessment/Plan Plan Narrative: Case d/w Dr. Mccoy. OK for discharge. Dr. Mccoy actively working on referral for hiatal hernia repair. Pt will contact me for screening colonoscopy following her hiatal hernia repair. - Problems/Diagnosis (1) Small bowel obstruction Problem: Acute
--- NOTE | 2017-03-13 10:14 | DS ---
(1) Partial small bowel obstruction Problem: Resolved (2) Hiatal hernia Problem: Chronic (3) Compression atelectasis Diagnosis(s): Likely acute on chronic Problem: Acute Description of Stay: ADMISSION DATE: 03/11/2017 DISCHARGE DATE: 03/13/2017 ADMISSION HPI BY ROSALIA ALMENDAREZ: Tiera is a 56 year old female with a PMH of COPD, HTN and HLD who had an appendectomy 10/2016 who presented to the ER tonight with c/o abdominal pain for 1 week. ER eval revealed wbc 13.0 with normal neutrophils, creatinine 1.24. CT abdomen/pelvis showed large hiatal hernia and dilated loops of small bowel throughout the abdomen c/w partial SBO vs ileus, no focal transition point seen. Dr. Brown was consulted by the ER. NG tube placed prior to admission. Patient to be admitted for partial SBO. HOSPITAL COURSE: The patient was admitted for a partial small bowel obstruction which was very likely due to intra-abdominal adhesions. She was treated conservatively with bowel rest and NG tube placement with low intermittent suction. The patient had an uneventful hospital stay and was tolerating PO intake and was passing gas and having bowel movements prior to discharge. Our general surgeon, Dr. Quiros, followed along and assisted with the patients care during her admission. Following discharge, the patient would like to meet with someone to discuss possible surgical intervention for her large hiatal hernia. The patient was discharged home in stable condition and instructed to make sure she goes to her follow-up appointments which have been scheduled as documented below. FOLLOW-UP APPOINTMENTS: -PCP, Dr. Glass, on 03/15/2017 2:30 PM -Referral/Consult with General Surgeon, Dr. Dumont, at [facility] to discuss surgical options for hiatal hernia. Appointment is scheduled for 03/19/2017 @ 2:20PM NEW OR CHANGED MEDICATIONS: -None DISCONTINUED MEDICATIONS: -None RADIOLOGY REPORTS: Abdominal x-ray flat and upright on 03/10/2017 showed: Large hiatal hernia which is partially gas filled. Diffuse gas within the colon and small bowel. There are a few gas-filled loops of small bowel but no air-fluid levels. These findings are nonspecific. Correlation and follow-up recommended. CT scan of the abdomen and pelvis with both oral and IV contrast on 03/11/2017 showed: Moderately large hiatal hernia with at least half of the stomach herniated into the middle mediastinum and left chest with adjacent atelectasis. Mildly dilated small bowel with associated air fluid level suggesting early partial small bowel obstruction. Correlation follow-up required. Appendix not identified. Status post hysterectomy. Abdominal KUB x-ray following NG placement on 03/11/2017 showed: NG tube coiled within the herniated stomach with distal tip directed towards the distal stomach. Single view chest x-ray on 03/11/2017 showed: Large hiatal hernia with the NG tube coiled within the herniated stomach. Abdominal x-ray flat and upright on 03/12/2017 showed: Previously seen gaseous distention of small bowel has resolved; the bowel gas pattern is nonspecific. NG tube coiled within the hiatal hernia. Questionable developing density in the left lung base; follow-up chest x-ray recommended. Two-view chest x-ray PA and lateral on 03/13/2017 showed: Basilar atelectasis improved. Procedures Performed: none Results and Findings: Laboratory Tests 03/10/17 03/10/17 03/12/17 23:00 23:00 05:35 WBC 13.0 H 9.3 D Hgb 11.4 L 9.8 L Hct 34.3 L 29.8 L MCV 88.9 89.8 Plt Count 432 326 Plasma Sodium 136 Potassium 4.7 H D Chloride 97 Carbon Dioxide 30.6 Anion Gap 13.1 BUN 26 H D Creatinine 1.24 Est GFR (Non-Af Amer) 48 L D BUN/Creatinine Ratio 21.0 Random Glucose 127 H Calcium 9.6 Calcium Adj for Albumin 9.4 Total Bilirubin 0.8 AST 19 ALT 22 Alkaline Phosphatase 100 Total Protein 7.8 Albumin 3.8 Procalcitonin 03/12/17 03/13/17 03/13/17 05:35 05:15 05:15 WBC 7.0 D Hgb 9.9 L Hct 30.4 L MCV 90.5 Plt Count 295 Plasma Sodium 141 Potassium 4.0 Chloride 106 Carbon Dioxide 29.0 Anion Gap 10.0 BUN 12 D Creatinine 0.82 Est GFR (Non-Af Amer) 77 D BUN/Creatinine Ratio 14.6 Random Glucose 124 H Calcium 8.4 Calcium Adj for Albumin Total Bilirubin AST ALT Alkaline Phosphatase Total Protein Albumin Procalcitonin Less than 0.05 L Discharge Disposition: Home self care Disposition: Home self-care Condition: Stable Discharge Activity: Activity as tolerated Discharge Diet: General/regular food Referrals: Walter Glass MD [Non Staff Physicians] - Problem Oriented Discharge Instructions to Patient/Family: Small Bowel Obstruction, [id number] Additional Patient Instructions (free text): F/U with PCP, Dr. Glass ([place], [place]) on Saturday03/15/2017 @ 2:30PM. You may return to work on Saturday03/20/17. Referral/Consult with General Surgeon, Dr. Dumont, at [facility] to discuss surgical options for hiatal hernia. Appointment is scheduled for 03/19/2017 @ 2:20pm. [facility], [address], [place] [address] Complete Home Medications List: Complete Home Medication List: Atorvastatin Calcium 40 mg PO DAILY 11/21/16 Baclofen 2.5 mg PO TID 11/21/16 Calcium Carbonate/Vitamin D3 [Calcium 600 + Vit D 400 Softgl] 2 each PO DAILY Diltiazem HCl [Diltiazem ER] 360 mg PO DAILY 11/21/16 Gemfibrozil [Lopid] 600 mg PO DAILY 11/21/16 Ipratropium [place] [Atrovent Hfa] 2 puff IH TID 11/21/16 Lisinopril [Zestril] 10 mg PO BID 11/21/16 Montelukast Sodium [Singulair] 10 mg PO DAILY 11/21/16 Multivitamin [One Daily Essential] 1 each PO DAILY 11/21/16 Nabumetone 750 mg PO TID 11/21/16 [place] Oil/[place]-3 Fatty Acids [Fish Oil] 1,200 mg PO BID 11/21/16 Turmeric Root Extract [Turmeric] 500 mg PO DAILY 03/10/17 Fluticasone/Salmeterol [Advair 250-50 Diskus] 1 puff IH BID 03/11/17
[2017-03-13 11:20] VITALS: BP 112/57
== END 2017-03-13 11:52 | disposition home or self-care (01) | DRG 389 ==
LOC: ER 22:09 → MS 03-11 01:11
PROVIDERS: ADMIT Nurse Practitioner Critical Care Medicine; ATTEND Internal Medicine
DX: K56.5 Intestinal adhesions [bands] with obstruction (postinfection) (principal); J98.11 Atelectasis; K44.9 Diaphragmatic hernia without obstruction or gangrene; R01.1 Cardiac murmur, unspecified; I10 Essential (primary) hypertension; E78.5 Hyperlipidemia, unspecified; J44.9 Chronic obstructive pulmonary disease, unspecified
CPT/HCPCS: 36415; 71010; 71020; 74000; 74020; 74177; 80048; 80053; 84145; 85025; 85027; 94640; 96374; 99283; J2405

== ENCOUNTER 2020-06-22 11:45 | Observation (INO) ==
[2020-06-22 12:41] LABS: Hematocrit 36.3 % (37.0-47.0); Hemoglobin 11.7 gm/dL (12.5-16.0); Mean Corpuscular Hemoglobin 30.6 pg (27-31); Mean Corpuscular Hgb Conc 32.2 g/dl (32-36); Mean Platelet Volume 9.7 fl (8-12.5); Neutrophil # 6.5 K/mm3 (1.3-6.0); Platelet Count 289 K/mm3 (150-450); Red Blood Count 3.82 M/mm3 (4.2-5.4); Red Cell Distribution Width 12.8 % (11.5-14.0); White Blood Count 8.8 K/mm3 (4.0-10.5)
[2020-06-22 12:51] LABS: ALT 33 U/L (19-67); AST 28 U/L (0-48); Albumin * 3.8 gm/dl (3.4-5.0); Alkaline Phosphatase * 78 U/L (50-170); Anion Gap 17.9 mmol/L (6.8-13.8); Bilirubin, Total 0.3 mg/dL (0.0-1.1); Blood Urea Nitrogen 31 mg/dL (3-23); Ca. Corrected For Albumin 9.4 mg/dL (8.4-10.2); Calcium * 9.6 mg/dL (7.9-10.9); Carbon Dioxide 23.2 mmol/L (24-32.6); Chloride 103 mmol/L (97-106); Glucose * 151 mg/dL (70-110); Potassium 4.1 mmol/L (3.4-4.6); Sodium 140 mmol/L (132-142); Total Protein 6.8 gm/dL (6.2-8.2); Troponin I Less than 0.017 ng/mL (0.00-0.10)
[2020-06-22 13:33] LABS: Urine Bilirubin Negative (NEGATIVE); Urine Blood Negative /ul (NEGATIVE); Urine Ketone 5 mg/dL (NEGATIVE); Urine Nitrite Negative (NEGATIVE); Urine Protein 30 mg/dL (NEGATIVE); Urine Specific Gravity >=1.030 SP.GR. (1.005-1.010); Urine Urobilinogen Normal (NORMAL); Urine pH 5.5 pH (5.0-7.0)
[2020-06-22 13:48] LABS: Urine Appearance Cloudy (CLEAR); Urine Bacteria 2+; Urine Color Yellow; Urine RBC TRACE /hpf (0-5); Urine WBC 0-5 /hpf (0-5)
--- NOTE | 2020-06-22 14:03 | ERNOTE ---
Date of Service: 06/22/20 Time Seen by Provider: 06/22/20 12:08 Stated Complaint: sob Presenting Symptoms:: cough Source: patient Exam Limitations: no limitations Immunizations: IMMUNIZATION HX Immunizations Up to Date Yes History of Influenza Vaccine Yes Hx Pneumococcal Vaccination Yes Allergies/Adverse Reactions: Allergies guaifenesin [From Entex LA] Allergy (Mild, Verified 06/22/20 12:06) itching, redness phenylephrine [From Entex LA] Allergy (Mild, Verified 06/22/20 12:06) itching, redness phenylpropanolamine [From Entex LA] Allergy (Mild, Verified 06/22/20 12:06) itching, redness oxycodone Allergy (Verified 06/22/20 12:06) severe n/t and loopy seafood Allergy (Severe, Uncoded 06/22/20 12:06) Anaphylaxis intex Allergy (Mild, Uncoded 06/22/20 12:06) itching, redness Home Medications: HOME MEDICATIONS Atorvastatin Calcium 40 mg PO DAILY 11/21/16 [Last Taken 11/20/18] Baclofen 2.5 mg PO TID 11/21/16 [Last Taken 11/20/18] Diltiazem HCl [Diltiazem 24Hr ER] 360 mg PO DAILY 11/21/16 [Last Taken 11/20/18] Gemfibrozil [Lopid] 600 mg PO DAILY 11/21/16 [Last Taken 11/20/18] Lisinopril [Zestril] 10 mg PO BID 11/21/16 [Last Taken 11/21/18] Montelukast Sodium [Singulair] 10 mg PO DAILY 11/21/16 [Last Taken 11/20/18] Multivitamin [One Daily Essential] 1 ea PO DAILY 11/21/16 [Last Taken 11/20/18] ipratropium bromide 17 mcg/actuation HFA aerosol inhaler 2 puff INHALATION QID g 09/12/18 [Last Taken 11/21/18] naproxen sodium 220 mg tablet 220 mg PO Q12H tab 09/12/18 [Last Taken Unknown] Fluticasone/Salmeterol [Advair 100-50 Diskus] 1 ea INHALATION DAILY 06/22/20 [Last Taken Unknown] - History of Present Ilness Narrative: The patient is a 59 year old female who presents for increased dyspnea and cough which has been present since Saturday with worsening symptoms that abruptly started this afternoon. There are associated symptoms of fatigue and chest discomfort. The patient denies pain. There are alleviating factors of rest. There are aggravating factors of activity. Previous treatments have included: none. The past medical history includes: anxiety, HTN, HLD, RLS and asthma. The social history is positive for former smoker. The patient has had no known ill contacts. Patient states she developed nasal congestion and drainage on Saturday, patient discussed symptoms with PCP and was instructed to use Flonase. Patient states that symptoms did improve and she was feeling better on Saturday. Patient states she returned to work today since she was feeling better but then had abrupt dyspnea and was unable to continue working due to dyspnea with minimal exertion. Patient states she had COVID in August but during discussion reveals that she was not actually tested just figured she had it due to symptoms. Patient denies known exposure to COVID but does work at [employer] and is exposed to other employees. Review of Systems - Review of Systems Constitutional: Present: fatigue. Absent: fever, chills EYE: Present: no symptoms reported ENT: Present: nose congestion, nasal drainage. Absent: ear pain, sore throat Respiratory: Present: shortness of breath, cough Cardiology: Present: chest pain Gastrointestinal/Abdominal: Present: nausea. Absent: vomiting, diarrhea, eating less, drinking less Genitourinary: Present: no symptoms reported. Absent: decreased urinary output Musculoskeletal: Present: no symptoms reported. Absent: back pain Skin: Present: no symptoms reported. Absent: rash Neurological: Present: no symptoms reported. Absent: headache, dizziness/light- headedness All Other Systems: All systems neg except as marked Medical History (Last Reviewed 06/22/20 @ 16:37 by VIRGIL Carmona) Hammer toe of left foot (Acute) Onset Date: Unknown Bunion, left foot (Chronic) Onset Date: 09/2018 MTP fusion 11/21/18 [place] Anxiety Onset Date: Unknown Appendicitis Onset Date: Unknown Arthritis Onset Date: Unknown Asthma Former tobacco use Hyperlipidemia Onset Date: Unknown Hypertension Onset Date: Unknown Restless leg syndrome Onset Date: Unknown SBO (small bowel obstruction) Onset Date: 03/11/17 Uses alcohol occasionally Wears glasses Surgical History: Surgical History (Last Reviewed 06/22/20 @ 16:37 by VIRGIL Carmona) H/O excision of ganglion cyst Onset Date: Unknown left wrist History of laparoscopic appendectomy Onset Date: 11/21/16 Tommeraasen-w/adhesiolysis History of tonsillectomy Onset Date: Unknown History of total knee replacement Onset Date: Unknown bilateral History of tubal ligation Onset Date: Unknown History of vaginal hysterectomy Onset Date: Unknown H/O foot surgery Onset Date: ~11/21/18 Dr. Otero: Left great toe metatarsophalangeal joint arthrodesis, hammertoe correction, left second and fifth toes, shaving of callus medial and plantar foot Family History: Family History (Last Reviewed 06/22/20 @ 16:37 by VIRGIL Carmona) Father , age 58 Cancer lung Mother , age 83 Cancer pancreatic Sister , age 47- MVA No problems noted. Sister Medical history unknown Sister Medical history unknown Brother Medical history unknown Daughter Obesity Social History: (Last Reviewed 06/22/20 @ 16:37 by VIRGIL Carmona) Social History: Marital status: household members: spouse number of children: 1 current occupation: [employer] at [email or web address] Service: No Tobacco: Smoking Status: Former smoker Tobacco: How many years used: 6 how long ago did patient quit smoking: age 23 Alcohol: alcohol intake: current alcohol intake frequency: holiday/special occasion Dietary Habits: caffeine: Yes Physical Exam - Physical Exam General Appearance: Present: wd/wn, alert, moderate distress, other - patient is agitated and argumentative Head Exam: Present: normal inspection, no evidence of injury Eye Exam: Normal inspection: bilateral Ears, Nose, Throat: Present: dry mucous membranes Neck: Present: normal inspection Respiratory: Present: respiratory distress, decreased breath sounds - L>R, diffuse left lung decreased breath sounds, right base decreased breath sounds Cardiovascular/Chest: Present: no murmur, tachycardia Gastrointestinal/Abdominal: Present: normal bowel sounds, nontender, nondistended, soft, no organomegaly Extremity Exam: Present: no edema Neurological Exam: Present: alert, oriented, normal mood/affect, no motor/sensory deficits Skin Exam: Present: normal color, warm/dry Progress - Date and Time Seen: Date and Time: 06/22/20 17:11 Several times plan of care, testing and results were reviewed with patient. Patient was very abrasive and verbal that she thought care was unnecessary. Multiple times during ER visit time was taken to ensure that patient understood testing, such as why it was being performed and to ensure that she wished to proceed. Patient verbalized willingness to proceed. Discussed need for COVID testing due to elevated D-Dimer and symptoms. Patient again is "disgusted" but discussed that due to symptoms and admission, verbalized agreeing. Discussed with patient that due to elevated Crea 2.38 and lactic acidosis would be beneficial to hydrate and monitor kidney function. Also discussed with patient that due to poor kidney function and elevated DDimer unable to proceed with CTA to rule out PE, will initiate Lovenox for treatment and potentially proceed with VQ scan tomorrow. Case was discussed with , does not feel that steroids are warranted at this time. Will administer Lovenox and states she will evaluate patient for continued therapy needs. Will administer Azithromycin due to COVID positive and dehydration CXR may show infiltrate after hydration. - Results and Orders Patient's Lab Results:: I have reviewed the patient's lab results. - Vital Signs Patient's Vital Signs:: I have reviewed the patient's vital signs. Vital Signs: Vital Signs 06/22/20 12:02 06/22/20 12:10 Temperature 36.4 C Pulse Rate 104 H 104 H Respiratory Rate 15 Blood Pressure 100/67 O2 Sat by Pulse Oximetry 96 - EKG EKG #1 EKG: NSR - sinus arrhythmia EKG read: Reviewed by me - X-Ray X-Ray #1 X-Ray: chest Interpretation: Reviewed by me X-ray Comments: IMPRESSION: STABLE CHEST WITH CHRONIC FINDINGS DISCUSSED. NO ACUTE CARDIOMEGALY DISEASE OTHERWISE IDENTIFIED. Electronically signed by Chele Garcia M.D.. - Progress/Reassessment Chief Complaint: Upper Respiratory Symptoms Departure Clinical Impression: COVID-19 Acute renal failure Qualifiers: Acute renal failure type: unspecified Qualified Code(s): N17.9 - Acute kidney failure, unspecified - Departure Disposition: Still a patient Condition: Fair
[2020-06-22] MEDS ORDERED: NORMAL SALINE 1,000 ML IV PRN (14:22)
[2020-06-22] MEDS ORDERED: ENOXAPARIN SODIUM 80 MG/0.8 ML DISP.SYRIN SC ONE ×2 (16:03→16:12)
[2020-06-22] MEDS ORDERED: AZITHROMYCIN 250 MG TABLET PO ONE (16:13)
--- NOTE | 2020-06-22 17:25 | HP ---
Chief Complaint - Chief Complaint Date of Service: 06/22/20 Time of Service: 15:30 Chief Complaint: Shortness of breath History of Present Illness: 59-year-old female with a past medical history of anxiety, asthma, arthritis, hypertension, hyperlipidemia presents with complaints of shortness of breath. In the ER she was found to have stable vitals and did not require any oxygen supplementation. Blood work was positive for acute kidney injury with creatinine of 2.38, baseline is 0.95, BUN of 31, her baseline is 9, elevated D- dimer at 0.76, Covid positive, chest x-ray showed chronic elevation of the left hemidiaphragm with scarring in the left lung base, hiatal hernia and some scarring in the right lung base which is unchanged from prior studies. She was not able to obtain a CT angio due to her abnormal renal function. She received a liter fluid and a dose of azithromycin as well as 1 dose of Lovenox. She is being admitted for further management and monitoring. She will obtain a VQ scan tomorrow. Medical History (Last Reviewed 06/22/20 @ 16:45 by Aida Black RN) Hammer toe of left foot (Acute) Onset Date: Unknown Bunion, left foot (Chronic) Onset Date: 09/2018 MTP fusion 11/21/18 [place] Anxiety Onset Date: Unknown Appendicitis Onset Date: Unknown Arthritis Onset Date: Unknown Asthma Former tobacco use Hyperlipidemia Onset Date: Unknown Hypertension Onset Date: Unknown Restless leg syndrome Onset Date: Unknown SBO (small bowel obstruction) Onset Date: 03/11/17 Uses alcohol occasionally Wears glasses Surgical History: Surgical History (Last Reviewed 06/22/20 @ 16:45 by Aida Black RN) H/O excision of ganglion cyst Onset Date: Unknown left wrist History of laparoscopic appendectomy Onset Date: 11/21/16 Tommeraasen-w/adhesiolysis History of tonsillectomy Onset Date: Unknown History of total knee replacement Onset Date: Unknown bilateral History of tubal ligation Onset Date: Unknown History of vaginal hysterectomy Onset Date: Unknown H/O foot surgery Onset Date: ~11/21/18 Dr. Otero: Left great toe metatarsophalangeal joint arthrodesis, hammertoe correction, left second and fifth toes, shaving of callus medial and plantar foot Family History: Family History (Last Reviewed 06/22/20 @ 16:45 by Aida Black RN) Father , age 58 Cancer lung Mother , age 83 Cancer pancreatic Sister , age 47- MVA No problems noted. 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 [employer] Service: No Tobacco: Smoking Status: Former smoker Tobacco: How many years used: 6 how long ago did patient quit smoking: age 23 Alcohol: alcohol intake: current alcohol intake frequency: holiday/special occasion Dietary Habits: caffeine: Yes Review Of Systems (GEN) - Review of Systems Generalized/Overall Review: Absent: Fever Respiratory: Present: Shortness of Breath Cardiac: Absent: Chest Pain Abdominal: Absent: Abdominal Pain Misc: All systems neg except as marked Immunizations: IMMUNIZATION HX Immunizations Up to Date Yes History of Influenza Vaccine Yes Hx Pneumococcal Vaccination Yes Allergies/Adverse Reactions: Allergies Allergy/AdvReac Type Severity Reaction Status Date / Time guaifenesin [From Entex LA] Allergy Mild itching, Verified 06/22/20 12:06 redness phenylephrine [From Entex LA] Allergy Mild itching, Verified 06/22/20 12:06 redness phenylpropanolamine Allergy Mild itching, Verified 06/22/20 12:06 [From Entex LA] redness oxycodone Allergy severe n/t Verified 06/22/20 12:06 and loopy seafood Allergy Severe Anaphylaxis Uncoded 06/22/20 12:06 intex Allergy Mild itching, Uncoded 06/22/20 12:06 redness Home Medications: HOME MEDICATIONS Atorvastatin Calcium 40 mg PO DAILY 11/21/16 [Last Taken 11/20/18] Baclofen 2.5 mg PO TID 11/21/16 [Last Taken 11/20/18] Diltiazem HCl [Diltiazem 24Hr ER] 360 mg PO DAILY 11/21/16 [Last Taken 11/20/18] Gemfibrozil [Lopid] 600 mg PO DAILY 11/21/16 [Last Taken 11/20/18] Lisinopril [Zestril] 10 mg PO BID 11/21/16 [Last Taken 11/21/18] Montelukast Sodium [Singulair] 10 mg PO DAILY 11/21/16 [Last Taken 11/20/18] Multivitamin [One Daily Essential] 1 ea PO DAILY 11/21/16 [Last Taken 11/20/18] ipratropium bromide 17 mcg/actuation HFA aerosol inhaler 2 puff INHALATION QID g 09/12/18 [Last Taken 11/21/18] naproxen sodium 220 mg tablet 220 mg PO Q12H tab 09/12/18 [Last Taken Unknown] Fluticasone/Salmeterol [Advair 100-50 Diskus] 1 ea INHALATION DAILY 06/22/20 [Last Taken Unknown] Exam - Exam Vital Signs: Vital Signs - Last Taken Temp 36.4 C 06/22/20 12:02 Pulse 61 06/22/20 15:16 Resp 15 06/22/20 15:16 BP 101/66 06/22/20 15:16 Pulse Ox 96 06/22/20 15:16 Constitutional: Present: Alert, Well developed, Well nourished, No distress, Overweight ENT Exam: Present: hearing grossly normal, moist mucous membranes Eye Exam: bilateral eye: normal inspection, EOMI Neck: Absent: supple, lymphadenopathy (R), lymphadenopathy (L) Back Exam: Present: no CVA tenderness, no vertebral tenderness Respiratory: Present: no respiratory distress, no accessory muscle use, decreased breath sounds - Left lower lobe, No wheezing. Absent: crackles, rhonchi Cardiovascular/Chest: Present: normal peripheral pulses, regular rate, rhythm, no edema, no murmur Peripheral Pulses: dorsalis-pedis (R): 1+, dorsalis-pedis (L): 1+ Abdomen: Present: Normal bowel sounds, soft, nontender Extremity: Present: no pedal edema Skin Exam: Present: normal color, warm/dry Neurologic: Present: alert, normal mood/affect Appearance: Present: appropriate appearance, appropriate insight Eye contact: Present: cooperative Thoughts: Present: normal thought pattern, normal mood /affect Diagnostic Studies: Abnormal Lab Results 06/22/20 06/22/20 06/22/20 Range/Units 12:15 12:26 12:26 RBC 3.82 L (4.2-5.4) M/mm3 Hgb 11.7 L (12.5-16.0) gm/dL Hct 36.3 L (37.0-47.0) % Immature Gran % (Auto) 0.90 H (0.001-0.429) % Immature Gran # (Auto) 0.08 H (0.000-0.0310) K/mm3 Lymphocytes % 13.6 L (20-51) % Monocytes % 10.8 H (0.0-9) % Neutrophils # 6.5 H (1.3-6.0) K/mm3 Lymphocytes # 1.20 L (1.5-3.5) k/mm3 D-Dimer (0.19-0.49) ug/mL Carbon Dioxide 23.2 L (24-32.6) mmol/L Anion Gap 17.9 H (6.8-13.8) mmol/L BUN 31 H (3-23) mg/dL Creatinine 2.38 H (0.4-1.4) mg/dL Est GFR (Non-Af Amer) 22 L D (60-130) mL/min Random Glucose 151 H (70-110) mg/dL Lactic Acid, Venous (0.4-2.0) mmol/L Procalcitonin Less than 0.05 L (0.05-0.50) ng/mL Urine Protein (NEGATIVE) mg/dL Ur Leukocyte Esterase (NEGATIVE) /ul Ur Epithelial Cells (0-5) /hpf Calcium Oxalate Crystal (NONE) /hpf Urine Bacteria (NONE) SARS-CoV-2 (PCR) (NotDetected) 06/22/20 06/22/20 06/22/20 Range/Units 12:50 12:50 13:26 RBC (4.2-5.4) M/mm3 Hgb (12.5-16.0) gm/dL Hct (37.0-47.0) % Immature Gran % (Auto) (0.001-0.429) % Immature Gran # (Auto) (0.000-0.0310) K/mm3 Lymphocytes % (20-51) % Monocytes % (0.0-9) % Neutrophils # (1.3-6.0) K/mm3 Lymphocytes # (1.5-3.5) k/mm3 D-Dimer 0.76 H (0.19-0.49) ug/mL Carbon Dioxide (24-32.6) mmol/L Anion Gap (6.8-13.8) mmol/L BUN (3-23) mg/dL Creatinine (0.4-1.4) mg/dL Est GFR (Non-Af Amer) (60-130) mL/min Random Glucose (70-110) mg/dL Lactic Acid, Venous 2.2 H* (0.4-2.0) mmol/L Procalcitonin (0.05-0.50) ng/mL Urine Protein 30 H (NEGATIVE) mg/dL Ur Leukocyte Esterase 25 H (NEGATIVE) /ul Ur Epithelial Cells 10-25 H (0-5) /hpf Calcium Oxalate Crystal Moderate - 2+ H (NONE) /hpf Urine Bacteria 2+ H (NONE) SARS-CoV-2 (PCR) (NotDetected) 06/22/20 Range/Units 13:52 RBC (4.2-5.4) M/mm3 Hgb (12.5-16.0) gm/dL Hct (37.0-47.0) % Immature Gran % (Auto) (0.001-0.429) % Immature Gran # (Auto) (0.000-0.0310) K/mm3 Lymphocytes % (20-51) % Monocytes % (0.0-9) % Neutrophils # (1.3-6.0) K/mm3 Lymphocytes # (1.5-3.5) k/mm3 D-Dimer (0.19-0.49) ug/mL Carbon Dioxide (24-32.6) mmol/L Anion Gap (6.8-13.8) mmol/L BUN (3-23) mg/dL Creatinine (0.4-1.4) mg/dL Est GFR (Non-Af Amer) (60-130) mL/min Random Glucose (70-110) mg/dL Lactic Acid, Venous (0.4-2.0) mmol/L Procalcitonin (0.05-0.50) ng/mL Urine Protein (NEGATIVE) mg/dL Ur Leukocyte Esterase (NEGATIVE) /ul Ur Epithelial Cells (0-5) /hpf Calcium Oxalate Crystal (NONE) /hpf Urine Bacteria (NONE) SARS-CoV-2 (PCR) Detected H (NotDetected) Laboratory Results WBC 8.8 K/mm3 (4.0-10.5) 06/22/20 12:26 RBC 3.82 M/mm3 (4.2-5.4) L 06/22/20 12:26 Hgb 11.7 gm/dL (12.5-16.0) L 06/22/20 12:26 Hct 36.3 % (37.0-47.0) L 06/22/20 12:26 MCV 95.0 fl (78-100) 06/22/20 12: MCH 30.6 pg (27-31) 06/22/20 12: MCHC 32.2 g/dl (32-36) 06/22/20 12: RDW 12.8 % (11.5-14.0) 06/22/20 12: Plt Count 289 K/mm3 (150-450) 06/22/20 12: MPV 9.7 fl (8-12.5) 06/22/20 12:26 Immature Gran % (Auto) 0.90 % (0.001-0.429) H 06/22/20 12: Immature Gran # (Auto) 0.08 K/mm3 (0.000-0.0310) H 06/22/20 12: Neutrophils % 73.0 % (42-75.0) 06/22/20 12: Lymphocytes % 13.6 % (20-51) L 06/22/20 12: Monocytes % 10.8 % (0.0-9) H 06/22/20 12: Eosinophils % 1.0 % (0.0-3.0) 06/22/20 12: Basophils % 0.7 % (0.0-1.0) 06/22/20 12: Nucleated RBC % 0.0 k/mm3 (0-1) 06/22/20 12: Neutrophils # 6.5 K/mm3 (1.3-6.0) H 06/22/20 12: Lymphocytes # 1.20 k/mm3 (1.5-3.5) L 06/22/20 12: Monocytes # 1.0 k/mm3 (0.0-1.0) 06/22/20 12: Eosinophils # 0.1 k/mm3 (0.0-0.7) 06/22/20 12: Absolute Basophils 0.1 k/mm3 (0.0-0.1) 06/22/20 12:26 D-Dimer 0.76 ug/mL (0.19-0.49) H 06/22/20 12:50 Sodium 140 mmol/L (132-142) 06/22/20 12:26 Plasma Sodium 141 mmol/L (130-142) 06/22/20 12:26 Potassium 4.1 mmol/L (3.4-4.6) 06/22/20 12:26 Chloride 103 mmol/L (97-106) 06/22/20 12:26 Carbon Dioxide 23.2 mmol/L (24-32.6) L 06/22/20 12:26 Anion Gap 17.9 mmol/L (6.8-13.8) H 06/22/20 12:26 BUN 31 mg/dL (3-23) H 06/22/20 12:26 Creatinine 2.38 mg/dL (0.4-1.4) H 06/22/20 12:26 Est GFR (Non-Af Amer) 22 mL/min (60-130) L D 06/22/20 12:26 BUN/Creatinine Ratio 13.0 (9.0-21.6) 06/22/20 12:26 Random Glucose 151 mg/dL (70-110) H 06/22/20 12:26 Lactic Acid, Venous 1.4 mmol/L (0.4-2.0) 06/22/20 15:10 Calcium 9.6 mg/dL (7.9-10.9) 06/22/20 12:26 Calcium Adj for Albumin 9.4 mg/dL (8.4-10.2) 06/22/20 12:26 Total Bilirubin 0.3 mg/dL (0.0-1.1) 06/22/20 12:26 AST 28 U/L (0-48) 06/22/20 12:26 ALT 33 U/L (19-67) 06/22/20 12:26 Alkaline Phosphatase 78 U/L (50-170) 06/22/20 12:26 Troponin I Less than 0.017 ng/mL (0.00-0.10) 06/22/20 12:26 B-Natriuretic Peptide 139 pg/mL (5-205) 06/22/20 12:26 Total Protein 6.8 gm/dL (6.2-8.2) 06/22/20 12: Albumin 3.8 gm/dl (3.4-5.0) 06/22/20 12:26 Procalcitonin Less than 0.05 ng/mL (0.05-0.50) L 06/22/20 12:15 Urine Color Yellow 06/22/20 13:26 Urine Appearance Cloudy (CLEAR) 06/22/20 13:26 Urine pH 5.5 pH (5.0-7.0) 06/22/20 13:26 Ur Specific [place] >=1.030 SP.GR. (1.005-1.010) 06/22/20 13:26 Urine Protein 30 mg/dL (NEGATIVE) H 06/22/20 13:26 Urine Glucose (UA) Negative mg/dL (NEGATIVE) 06/22/20 13:26 Urine Ketones 5 mg/dL (NEGATIVE) 06/22/20 13:26 Urine Blood Negative /ul (NEGATIVE) 06/22/20 13:26 Urine Nitrate Negative (NEGATIVE) 06/22/20 13:26 Urine Bilirubin Negative mg/dl (NEGATIVE) 06/22/20 13:26 Prot Sulfosalicylic Acd Negative mg/dL (0) 06/22/20 13:26 Urine Urobilinogen Normal EU/dl (NORMAL) 06/22/20 13:26 Ur Leukocyte Esterase 25 /ul (NEGATIVE) H 06/22/20 13:26 Urine RBC Trace /hpf (0-5) 06/22/20 13:26 Urine WBC 0-5 /hpf (0-5) 06/22/20 13:26 Ur Epithelial Cells 10-25 /hpf (0-5) H 06/22/20 13:26 Calcium Oxalate Crystal Moderate - 2+ /hpf (NONE) H 06/22/20 13:26 Urine Bacteria 2+ (NONE) H 06/22/20 13:26 Urine Culture Comments Culture to follow 06/22/20 13:26 SARS-CoV-2 (PCR) Detected (NotDetected) H 06/22/20 13:52 Assessment/Plan - Narrative Narrative: 59-year-old female with a past medical history of anxiety, asthma, arthritis, hypertension, hyperlipidemia presents with complaints of shortness of breath. In the ER she was found to have stable vitals and did not require any oxygen eckert pplementation. Blood work was positive for acute kidney injury with creatinine of 2.38, baseline is 0.95, BUN of 31, her baseline is 9, elevated D-dimer at 0.76, Covid positive, chest x-ray showed chronic elevation of the left hemidiaphragm with scarring in the left lung base, hiatal hernia and some scarring in the right lung base which is unchanged from prior studies. She was not able to obtain a CT angio due to her abnormal renal function. She received a liter fluid and a dose of azithromycin as well as 1 dose of Lovenox. She is being admitted for further management and monitoring. She will obtain a V/Q scan tomorrow. Plan #1 V/Q scan #2 CBC and CMP in the morning #3 oxygen supplementation as needed #4 resume home medications for comorbidities - Assessment/Plan (1) COVID-19 Problem: Acute (2) PADMINI (acute kidney injury) Problem: Acute (3) Asthma Problem: Chronic (4) HTN (hypertension) Problem: Chronic Qualifiers: Hypertension type: essential hypertension Qualified Code(s): I10 - Essential (primary) hypertension (5) HLD (hyperlipidemia) Problem: Chronic Qualifiers: Hyperlipidemia type: unspecified (6) Elevated d-dimer Problem: Acute
[2020-06-22] MEDS ORDERED: FLU VACC QS2020-21(6MOS UP)/PF 60 MCG/0.5 ML SYRINGE IM ONE (19:00)
[2020-06-22] MEDS ORDERED: BUDESONIDE 0.25 MG/2 ML VIAL.NEB IH SCH (19:00)
[2020-06-22] MEDS ORDERED: ALBUTEROL SULFATE 2.5 MG/0.5 ML VIAL.NEB IH SCH (19:00)
[2020-06-22] MEDS: NORMAL SALINE 1,000 ML IV PRN (19:11)
[2020-06-22] MEDS: NAPROXEN SODIUM 220 MG TABLET PO SCH (19:44)
[2020-06-22] MEDS: IPRATROPIUM PO SCH (21:30)
[2020-06-22] MEDS: LISINOPRIL 10 MG TABLET PO SCH (21:31)
[2020-06-22] MEDS ORDERED: MONTELUKAST SODIUM 10 MG TABLET PO SCH (21:41)
[2020-06-22] MEDS ORDERED: GEMFIBROZIL 600 MG TABLET PO SCH (21:42)
[2020-06-22] MEDS: BACLOFEN 10 MG TABLET PO SCH (21:46)
[2020-06-23] MEDS: NORMAL SALINE 1,000 ML IV PRN (03:00)
[2020-06-23] MEDS: NAPROXEN SODIUM 220 MG TABLET PO SCH (04:57)
[2020-06-23] MEDS: IPRATROPIUM PO SCH (06:34)
[2020-06-23 06:43] LABS: Hematocrit 32.7 % (37.0-47.0); Hemoglobin 10.3 gm/dL (12.5-16.0); Mean Cell Volume 95.1 fl (78-100); Mean Corpuscular Hemoglobin 29.9 pg (27-31); Mean Corpuscular Hgb Conc 31.5 g/dl (32-36); Mean Platelet Volume 9.3 fl (8-12.5); Neutrophil # 3.2 K/mm3 (1.3-6.0); Neutrophil % 60.1 % (42-75.0); Platelet Count 223 K/mm3 (150-450); Red Blood Count 3.44 M/mm3 (4.2-5.4); Red Cell Distribution Width 12.8 % (11.5-14.0); White Blood Count 5.4 K/mm3 (4.0-10.5)
[2020-06-23 06:53] LABS: Albumin * 3.1 gm/dl (3.4-5.0); Anion Gap 12.5 mmol/L (6.8-13.8); BUN/Creatinine Ratio 16.8 (9.0-21.6); Bilirubin, Total 0.4 mg/dL (0.0-1.1); Ca. Corrected For Albumin 8.8 mg/dL (8.4-10.2); Calcium * 8.4 mg/dL (7.9-10.9); Carbon Dioxide 24.7 mmol/L (24-32.6); Potassium 4.2 mmol/L (3.4-4.6); Total Protein 5.8 gm/dL (6.2-8.2)
[2020-06-23] MEDS ORDERED: ENOXAPARIN SODIUM 80 MG/0.8 ML DISP.SYRIN SC ONE (08:00)
[2020-06-23] MEDS: BACLOFEN 10 MG TABLET PO SCH (08:40)
[2020-06-23] MEDS: LISINOPRIL 10 MG TABLET PO SCH (08:41)
[2020-06-23] MEDS ORDERED: IPRATROPIUM IH SCH (08:45)
[2020-06-23] MEDS ORDERED: SALMETEROL PO SCH (09:00)
[2020-06-23] MEDS ORDERED: ROSUVASTATIN CALCIUM 20 MG TABLET PO SCH (09:00)
[2020-06-23] MEDS ORDERED: FLUTICASONE IH SCH (09:00)
[2020-06-23] MEDS ORDERED: SALMETEROL IH SCH (09:00)
[2020-06-23] MEDS ORDERED: FLUTICASONE PROPION/SALMETEROL 14 PUFF DISK.W.DEV IH SCH (09:00)
[2020-06-23] MEDS ORDERED: FLUTICASONE PO SCH (09:00)
[2020-06-23] MEDS ORDERED: DILTIAZEM HCL 180 MG CAP.SR.24H PO SCH (09:00)
--- NOTE | 2020-06-23 09:26 | DS ---
(1) COVID-19 Problem: Acute (2) PADMINI (acute kidney injury) Problem: Acute (3) Asthma Problem: Chronic (4) HTN (hypertension) Problem: Chronic Qualifiers: Hypertension type: essential hypertension Qualified Code(s): I10 - Essential (primary) hypertension (5) HLD (hyperlipidemia) Problem: Chronic Qualifiers: Hyperlipidemia type: unspecified (6) Elevated d-dimer Problem: Acute Hospital Course: 59-year-old female with a past medical history of anxiety, asthma, arthritis, hypertension, hyperlipidemia presents with complaints of shortness of breath. In the ER she was found to have stable vitals and did not require any oxygen supplementation. Blood work was positive for acute kidney injury with creatinine of 2.38, baseline is 0.95, BUN of 31, her baseline is 9, elevated D- dimer at 0.76, Covid positive, chest x-ray showed chronic elevation of the left hemidiaphragm with scarring in the left lung base, hiatal hernia and some scarring in the right lung base which is unchanged from prior studies. She was not able to obtain a CT angio due to her abnormal renal function. She received a liter fluid and a dose of azithromycin as well as 1 dose of Lovenox. She is being admitted for further management and monitoring. She has been stable overnight. Renal function is back to baseline. Her Wells score is 0, so she is a low likelihood for PE. She is stable to be discharged home today. Advised that if her symptoms worsen or she develops difficulty breathing she should seek medical attention. Advised that she needs to stay home for 10 days and self-isolation. Follow-up with her primary care provider within the next 2 weeks. Procedures Performed: none Results and Findings: Pending Mircobiology Results 06/22/20 13:18 Urine,Clean Catch Urine Culture - Preliminary No Pathogens Isolated Lab Pending Results 06/22/20 12:15: Procalcitonin Less than 0.05 L 06/22/20 12:26: WBC 8.8, RBC 3.82 L, Hgb 11.7 L, Hct 36.3 L, MCV 95.0, MCH 30.6, MCHC 32.2, RDW 12.8, Plt Count 289, MPV 9.7, Immature Gran % (Auto) 0.90 H, Immature Gran # (Auto) 0.08 H, Neutrophils % 73.0, Lymphocytes % 13.6 L, Monocytes % 10.8 H, Eosinophils % 1.0, Basophils % 0.7, Nucleated RBC % 0.0, Neutrophils # 6.5 H, Lymphocytes # 1.20 L, Monocytes # 1.0, Eosinophils # 0.1, Absolute Basophils 0.1 06/22/20 12:26: Sodium 140, Plasma Sodium 141, Potassium 4.1, Chloride 103, Carbon Dioxide 23.2 L, Anion Gap 17.9 H, BUN 31 H, Creatinine 2.38 H, Est GFR (N on-Af Amer) 22 L D, BUN/Creatinine Ratio 13.0, Random Glucose 151 H, Calcium 9.6, Calcium Adj for Albumin 9.4, Total Bilirubin 0.3, AST 28, ALT 33, Alkaline Phosphatase 78, Troponin I Less than 0.017, Total Protein 6.8, Albumin 3.8 06/22/20 12:26: B-Natriuretic Peptide 139 06/22/20 12:50: D-Dimer 0.76 H 06/22/20 12:50: Lactic Acid, Venous 2.2 H* 06/22/20 13:26: Urine Color Yellow, Urine Appearance Cloudy, Urine pH 5.5, Ur Specific [place] >=1.030, Urine Protein 30 H, Urine Glucose (UA) Negative, Urine Ketones 5, Urine Blood Negative, Urine Nitrate Negative, Urine Bilirubin Negative, Prot Sulfosalicylic Acd Negative, Urine Urobilinogen Normal, Ur Leukocyte Esterase 25 H, Urine RBC Trace, Urine WBC 0-5, Ur Epithelial Cells 10- 25 H, Calcium Oxalate Crystal Moderate - 2+ H, Urine Bacteria 2+ H, Urine Culture Comments Culture to follow 06/22/20 13:52: SARS-CoV-2 (PCR) Detected H 06/22/20 15:10: Lactic Acid, Venous 1.4 06/23/20 06:36: WBC 5.4 D, RBC 3.44 L, Hgb 10.3 L, Hct 32.7 L, MCV 95.1, MCH 29.9, MCHC 31.5 L, RDW 12.8, Plt Count 223, MPV 9.3, Immature Gran % (Auto) 0.70 H, Immature Gran # (Auto) 0.04 H, Neutrophils % 60.1, Lymphocytes % 21.6, Monocytes % 14.1 H, Eosinophils % 2.6, Basophils % 0.9, Nucleated RBC % 0.0, Neutrophils # 3.2, Lymphocytes # 1.16 L, Monocytes # 0.8, Eosinophils # 0.1, Absolute Basophils 0.1 06/23/20 06:36: Sodium 140, Plasma Sodium 140, Potassium 4.2, Chloride 107 H, Carbon Dioxide 24.7, Anion Gap 12.5, BUN 19, Creatinine 1.13, Est GFR (Non-Af Amer) 52 L D, BUN/Creatinine Ratio 16.8, Random Glucose 97 D, Calcium 8.4, Calcium Adj for Albumin 8.8, Total Bilirubin 0.4, AST 22, ALT 27, Alkaline Phosphatase 72, Total Protein 5.8 L, Albumin 3.1 L Discharge Location: Home Disposition: Home self-care Condition: Fair Discharge Activity: Activity as tolerated Discharge Diet: General/regular food Referrals: Karl Villanueva MD [Primary Care Provider] - Complete Home Medications List: Complete Home Medication List: Atorvastatin Calcium 40 mg PO DAILY 11/21/16 Baclofen 2.5 mg PO TID 11/21/16 Diltiazem HCl [Diltiazem 24Hr ER] 360 mg PO DAILY 11/21/16 Gemfibrozil [Lopid] 600 mg PO DAILY 11/21/16 Lisinopril [Zestril] 10 mg PO BID 11/21/16 Montelukast Sodium [Singulair] 10 mg PO DAILY 11/21/16 Multivitamin [One Daily Essential] 1 ea PO DAILY 11/21/16 ipratropium bromide 17 mcg/actuation HFA aerosol inhaler 2 puff INHALATION QID g 09/12/18 naproxen sodium 220 mg tablet 220 mg PO Q12H tab 09/12/18 Ascorbic Acid [Vitamin C] 1,000 mg PO DAILY 06/22/20 Fluticasone-Salmeterol 250-50 1 puff INH BID 06/22/20
[2020-06-23] MEDS ORDERED: IPRATROPIUM/ALBUTEROL SULFATE 120 PUFF INHALER IH SCH (11:00)
[2020-06-23 11:32] VITALS: BP 120/67
== END 2020-06-23 11:30 | disposition home or self-care (01) ==
LOC: ER 11:45 → SCU 11:45
PROVIDERS: ADMIT Internal Medicine; ATTEND Internal Medicine